=== PATIENT | female | born 1965 | race Caucasian/White ===

== ENCOUNTER → 2018-06-28 | Day surgery (SDC) | payer OTHER ==
[2018-06-23 12:19] LABS: BASOPHILS # (AUTO) 0.1 (0.0-0.1); BASOPHILS % 0.9 % (0.0-1.0); EOSINOPHILS # (AUTO) 0.3 (0.0-0.4); EOSINOPHILS % 3.1 % (0.0-6.0); HEMATOCRIT 36.4 % (34.2-44.1); HEMOGLOBIN 11.5 g/dL (12.0-16.0); LYMPHOCYTES % 33.3 % (18.0-39.1); MEAN CORPUSCULAR HEMOGLOBIN 27.4 pg (28-32); MEAN CORPUSCULAR HGB CONC 31.6 g/dL (31-35); MEAN CORPUSCULAR VOLUME 86.7 fL (81-99); MONOCYTES # (AUTO) 0.5 (0.2-0.8); NEUTROPHILS # (AUTO) 5.2 (2.1-6.9); NEUTROPHILS % 57.5 % (38.7-80.0); PLATELET COUNT 298 x10e3/uL (140-360); RED CELL DISTRIBUTION WIDTH 13.2 % (11.7-14.4)
[~2018-06-28] MED LIST: ATORVASTATIN CA20 MG PO; FENTANYL CITRATE/PF 100MCG/2 ML INJ ONE; HYOSCYAMINE SULFATE 0.5 MG/ML INJ ONE; LISINOPRIL10 MG PO; LORAZEPAM1 MG PO; METFORMIN HCL500 MG PO; MIDAZOLAM HCL 2 MG/2 ML VIAL ONE; NORCO 7.5-3251 EACH PO; NOVOLOG MIX 70-33 M1 SQ; OMEPRAZOLE40 MG PO; PROPOFOL IV EMULSION 10 MG/ML 50 ML VIAL ONE; Z.0.CELEBREX50 MG PO; Z.0.GLIPIZIDE10 MG; Z.0.GLUCOPHAGE850 MG; Z.0.PRILOSEC OTC20 M; Z.0.PRINIVIL20 MG; [UNRECOGNIZED DRUG - OTHER]
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
[2018-06-28 10:15] VITALS: BP 111/77
[2018-06-28 11:16] LABS: WBC,FECAL (FECAL LACTOFERRIN) NEGATIVE (NEGATIVE)
[2018-06-28 11:40] LABS: C DIFFICILE TOXIN A&B AMP PROB NEGATIVE (NEGATIVE)
--- NOTE | 2018-06-28 12:20 | Operative Report ---
DATE OF PROCEDURE: June 28, 2018 REFERRING PHYSICIAN: Dr. Kevin Weller. PROCEDURES PERFORMED 1. Esophagogastroduodenoscopy with biopsies and esophageal dilation 2. Colonoscopy with biopsies. INDICATIONS FOR ESOPHAGOGASTRODUODENOSCOPY: Dysphagia, upper abdominal pain, history of melena. INDICATIONS FOR COLONOSCOPY: Chronic diarrhea, personal history of colon polyps. MEDICATION: Patient was done under MAC. Please see anesthesiologist's note. PROCEDURE: With the patient in left lateral decubitus position, flexible fiberoptic Olympus gastroscope was introduced into the esophagus under direct visualization without any difficulty. There was some patchy erythema noted in distal esophagus. Mild stricture was noted at the GE junction that dilated to a size 52-Tristanian Rios. The scope was then advanced with ease into the stomach. Mucosa overlying the antrum and the body revealed some patchy intense erythema and low-grade to moderate edema and biopsies were obtained and sent to stain for H. pylori. Gastric polyps, hyperplastic appearing, minute were noted in the body of the stomach and some were partially excised per the cold biopsy forceps. Pylorus appeared to be of normal contour and shape and intubated with ease and the scope was advanced all the way to the 2nd portion of the duodenum. Biopsies were obtained from the proximal 2nd portion and the duodenal bulb to rule out sprue. The scope was then withdrawn back into the stomach and retroflexed, and mucosa overlying the fundus and the cardia appeared to be within normal limits. The scope was then straightened out and was subsequently withdrawn. Patient tolerated the procedure well. IMPRESSION 1. Distal esophagitis, mild. 2. Esophageal stricture at gastroesophageal junction, dilated to a size 52-Tristanian Rios. 3. Gastritis, biopsied. Biopsy sent to stain for Helicobacter pylori. 4. Gastric polyps, hyperplastic appearing, some partially excised with cold biopsy forceps. 5. Rule out sprue. PLAN: Follow up histology. Continue omeprazole 40 mg 1 p.o. a. c. b.i.d. and Carafate 1 gram p.o. a.c. t.i.d. and nightly. Patient was then turned around and after adequate lubrication of the anal canal, a flexible fiberoptic Olympus colonoscope was inserted into the rectum with ease and advanced all the way to the cecum. Mucosa overlying the cecum revealed some patchy mild inflammatory changes. The ileocecal valve was intubated and the scope was advanced into the terminal ileum. Biopsies were obtained from the terminal ileum. The scope was then withdrawn slowly. Mucosa overlying the ascending, transverse, descending, sigmoid, and rectum revealed some patchy [id number] inflammatory changes and random biopsies were obtained. There was some scattered diverticular disease noted, which was more prominent in the sigmoid colon. The scope was then retroflexed into the distal rectum and small internal hemorrhoids were noted, none of which was actively bleeding. The scope was then straightened out. The scope was subsequently withdrawn after securing an adequate stool specimen that was sent for the appropriate stool studies. Patient tolerated the procedure well. IMPRESSION 1. Colitis, mild, patchy. Random biopsies obtained. 2. Diverticulosis. 3. Proctitis, mild. 4. Internal hemorrhoids, none actively bleeding. PLAN: Follow up histology. Follow up stool studies. Initiate VSL #3 one p.o. daily and Bentyl 10 mg 1 p.o. t.i.d. Start Flagyl 500 mg 1 p.o. q. i.d. x14 days. Patient might benefit from a followup colonoscopy in 5 to 10 years. Job#: [id number] UMA cc:DR. KEVIN WELLER
== END | disposition home or self-care (01) ==
LOC: OR 07:23
PROVIDERS: ATTEND Internal Medicine Gastroenterology
DX: K29.70 Gastritis, unspecified, without bleeding (principal); K31.7 Polyp of stomach and duodenum; K22.2 Esophageal obstruction; K20.9 Esophagitis, unspecified; K52.9 Noninfective gastroenteritis and colitis, unspecified; K21.9 Gastro-esophageal reflux disease without esophagitis; K57.30 Diverticulosis of large intestine without perforation or abscess without bleeding; K62.89 Other specified diseases of anus and rectum; K64.8 Other hemorrhoids; I10 Essential (primary) hypertension; E11.9 Type 2 diabetes mellitus without complications; M19.90 Unspecified osteoarthritis, unspecified site; R53.1 Weakness; F41.9 Anxiety disorder, unspecified; E78.5 Hyperlipidemia, unspecified; Z88.6 Allergy status to analgesic agent; Z01.810 Encounter for preprocedural cardiovascular examination; Z01.812 Encounter for preprocedural laboratory examination; Z79.4 Long term (current) use of insulin; Z87.891 Personal history of nicotine dependence; Z80.0 Family history of malignant neoplasm of digestive organs
CPT/HCPCS: 36415 ×2; 43239; 43450; 45380; 82948; 83630; 83993; 85025; 87045; 87177; 87328; 87493; 93005; J1980; J2250; 45378

== ENCOUNTER 2020-06-21 05:29 | Observation (INO) | payer BC ==
[2020-06-18 15:42] LABS: BASOPHILS # (AUTO) 0.1 (0.0-0.1); BASOPHILS % 1.3 % (0.0-1.0); EOSINOPHILS # (AUTO) 0.6 (0.0-0.4); EOSINOPHILS % 6.9 % (0.0-6.0); HEMATOCRIT 37.8 % (34.2-44.1); HEMOGLOBIN 11.6 g/dL (12.0-16.0); LYMPHOCYTES # (AUTO) 2.9 (1.0-3.2); LYMPHOCYTES % 33.6 % (18.0-39.1); MEAN CORPUSCULAR HEMOGLOBIN 26.5 pg (28-32); MEAN CORPUSCULAR HGB CONC 30.7 g/dL (31-35); MEAN CORPUSCULAR VOLUME 86.3 fL (81-99); MONOCYTES # (AUTO) 0.4 (0.2-0.8); MONOCYTES % 4.9 % (4.4-11.3); NEUTROPHILS # (AUTO) 4.5 (2.1-6.9); NEUTROPHILS % 52.8 % (38.7-80.0); PLATELET COUNT 259 x10e3/uL (140-360); RED BLOOD COUNT 4.38 x10e6/uL (3.6-5.1); RED CELL DISTRIBUTION WIDTH 13.9 % (11.7-14.4)
[2020-06-18 15:54] LABS: INR 0.9; PARTIAL THROMBOPLASTIN TIME 25.3 seconds (23.8-35.5); PROTHROMBIN TIME 12.6 seconds (11.9-14.5)
[2020-06-18 16:00] LABS: ANION GAP 14.9 mmol/L (8-16); BLOOD UREA NITROGEN 14 mg/dL (7-26); BUN/CREATININE RATIO 15 (6-25); CALCIUM 8.9 mg/dL (8.4-10.2); CARBON DIOXIDE 27 mmol/L (22-29); CHLORIDE 104 mmol/L (98-107); CREATININE, SERUM 0.95 mg/dL (0.57-1.11); EST GLOMERULAR FILTRATION RATE > 60 ML/MIN (60-); GLUCOSE 129 mg/dL (74-118); POTASSIUM 4.9 mmol/L (3.5-5.1); SODIUM 141 mmol/L (136-145)
--- NOTE | 2020-06-18 16:30 | Diagnostic Imaging Report ---
Exam: CHEST 2 VIEWS Date: 06/18/2020 4:24 PM INDICATION: ^PRE-OP Comparison: None FINDINGS: Lines/Tubes:None Lungs:The lungs are well inflated. No focal consolidation or pulmonary edema. Pleura:No pleural effusion. No pneumothorax. Heart/Mediastinum:The cardiomediastinal silhouette is normal in size and contour. Bones/Soft Tissues: No acute osseous abnormality. Mild multilevel degenerative changes of the spine are noted. Upper abdomen: Unremarkable. IMPRESSION: Negative for acute intrathoracic process. Signed by: Alvin Morrow MD on 06/18/2020 4:27 PM
[2020-06-21] VITALS (7 sets, daily range): BP systolic 140–152; BP diastolic 73–90
[~2020-06-21] VITALS: Ht 170.2 cm; Wt 88.5 kg
[~2020-06-21 05:29] MED LIST changes: -FENTANYL CITRATE/PF 100MCG/2 ML INJ ONE; +GABAPENTIN300 MG PO; -HYOSCYAMINE SULFATE 0.5 MG/ML INJ ONE; +METOPROLOL TART25 MG PO; -MIDAZOLAM HCL 2 MG/2 ML VIAL ONE; +NOVOLOG100 UNIT/1 SC; -PROPOFOL IV EMULSION 10 MG/ML 50 ML VIAL ONE; +TIZANIDINE HCL4 M1 PO
[2020-06-21] MEDS ORDERED: CEFAZOLIN SOD 1 GM/NS 50ML 100 ML IV ONE (06:02)
[2020-06-21] MEDS ORDERED: LIDOCAINE 1% W/EPINEPHRINE 20 ML VIAL ONE (06:53)
[2020-06-21] MEDS ORDERED: THROMBIN FOR SOLN 5,000 UNIT VIAL ONE (06:53)
[2020-06-21] MEDS ORDERED: VANCOMYCIN HCL 1 GM VIAL ONE (06:53)
[2020-06-21] MEDS ORDERED: LIDOCAINE HCL (LTA) 4 ML SOLN ONE (07:07)
[2020-06-21] MEDS ORDERED: ACETAMINOPHEN 1000 MG/100 ML 100 ML IV ONE (07:07)
[2020-06-21] MEDS ORDERED: IBUPROFEN 800MG/ 200ML 200 ML IV ONE (07:07)
[2020-06-21] MEDS ORDERED: ACETAMINOPHEN 325 MG TAB PO PRN (08:45)
[2020-06-21] MEDS ORDERED: CARISOPRODOL 350 MG TAB PO PRN (08:45)
[2020-06-21] MEDS ORDERED: INSULIN LISPRO 100 UNIT/1 ML 3ML VIAL SQ SCH (08:45)
[2020-06-21] MEDS ORDERED: MORPHINE SULFATE 5 MG/ML VIAL IM PRN (08:45)
[2020-06-21] MEDS ORDERED: MAGNESIUM/ALUMINUM/SIMETHICONE 30 ML UDC PO PRN (08:45)
[2020-06-21] MEDS ORDERED: PROMETHAZINE HCL (IM) 25 MG/ML VIAL IM PRN (08:45)
[2020-06-21] MEDS ORDERED: ONDANSETRON HCL INJ 2MG/ML 2ML 2 MG/ML VIAL ONE ×2 (08:59→13:24)
--- OUTSIDE RECORDS SUMMARY | 2020-06-21 08:59 | XMS REPORT | Continuity of Care Document ---
Author Author Rajiv [employer] DMITRIY Christian [employer] Information [email or web address] Address Unknown Phone Unavailable Care Team Providers Care Sales Promotion Coordinator Name Role Phone [facility] [employer] Unavailable Un available Problems Problem Status Onset Date Classification Date Reported Comments Source Presence of right artificial knee joint 06/30/2018 01/11/2019 [facility] [place] Aftercare following joint replacement surgery 05/28/2018 12/09/2018 [facility] [place] RIGHT KNEE SURGERY [id number] Acti ve 04/20/2018 [facility] [place] RIGHT TOTAL KNEE Active 04/20/2018 [facility] UNK Active 0 03/23/2018 [facility] M17.11 M25.561 Active 03/23/2018 [facility] DX: S43.421A=SPRAIN OF RIGHT ROTATOR CUF Active 05/08/2017 [facility] Pain in right knee 01/11/2019 [facility] Stiffness of right knee, not elsewhere classified 01/11/2019 [facility] [place] Muscle weakness (generalized) 01/11/2019 [facility] [place] Difficulty in walking, not elsewhere classified 01/11/2019 [facility] [place] Anxiety (finding) Active Problem 01/11/2019 [facility] Diabetes mellitus (disorder) A ctive Problem 06/2019 [facility] [place] Heartburn (finding) Active Problem 01/11/2019 [facility] [place] Arthritis (disorder) Active Problem 01/11/2019 [facility] Unilateral primary osteoarthritis, right knee 11/09/2018 [facility] Type 2 diabetes mellitus without complications 11/09/2018 [facility] intermediate frame tender (current) use of insulin 11/09/2018 [facility] Pure hypercholesterolemia, unspecified 11/09/2018 [facility] Gastro-esophageal reflux disease without esophagitis 11/09/2018 [facility] Anxiety disorder, unspecified 11/09/2018 [facility] Anemia, unspecified 11/09/2018 [facility] UNILATERAL PRIMARY OSTEOARTHRITIS, RIGHT Active [facility] PAIN IN RIGHT KNEE Active [facility] ENCNTR FOR GENERAL ADULT MEDICAL EXAM W/ Active [facility] PAIN IN RIGHT HIP Active [facility] PAIN IN LEFT HIP Active [facility] Medications Medication Details Route Status Patient Instructions Ordering Provider Order Date Source Acetaminophen 325 MG / Hydrocodone Benny trate 10 MG Oral Tablet [[place] 10/325] 1-2 tab, PO, Q6H, PRN Pain, X 14 day, # 60 tab, 0 Refill(s), given to patient No Longer Active 04/22/2018 [facility] Metformin Notes: (Same as: Glu cophage) Take with meal No Longer Active 04/21/2018 [facility] Enoxaparin Notes: (Same as: Lo venox) No Longer Active 04/21/2018 [facility] Lunesta 3 mg, Route: PO, Bedti me, Dosing Weight 83.21, kg, Start date: 04/20/18 21:00:00 CDT, Duration: 30 day, Stop date: 05/19/18 21:00:00 CDT Inactive 04/21/2018 [facility] zolpidem Notes: (Same As: Ambi en) No Longer Active 04/21/2018 [facility] Insulin Lispro Notes: (Same as : Humalog ) Roll in palms of hands gently; Do not shake `vigorously. "Single Patient Use Only " WASTE: F/P - Black; E - Municipal Trash Bin Stable for 28 days at room temp erature. Expires in days from Date No Longer Active 04/20/2018 [facility] Dextrose 50% Syringe 25 gm, 50 mL, Route: IVP, Drug Form: INJ, Dosing Weight 83.21, kg, PRN, PRN Blood Glucose Results, Start date: 04/20/18 16:12:00 CDT, Duration: 30 day, Stop date: 05/20/18 16:11:00 CDT No Longer Active 04/20/2018 [facility] Glucagon 1 mg, Route: IM, Drug form: PDR/INJ, PRN, Dosing Weight 83.21, kg, PRN Blood Glucose Results, Start date: 04/20/18 16:12:00 CDT, Duration: 30 day, Stop date: 05/20/18 16:11:00 CDT No Longer Active 04/20/2018 [facility] Cefazolin Notes: (Same As: Anc ef, Kefzol) MEDICATION WASTE Product Size: 1000 mg Product Wasted: ___ mg No Longer Active 04/20/2018 [facility] Zofran Notes: (Same as: Zofran ) MEDICATION WASTE Product Size: 4 mg Product Wasted: ___ mg No Longer Active 04/20/2018 [facility] Lovenox 30 mg, Route: SUB-Q, D rug form: INJ, [id number], Dosing Weight 83.21, kg, Start date: 04/20/18 12:00:00 CDT, Duration: 30 day, Stop date: 05/20/18 0:00:00 CDT Inactive 04/20/2018 [facility] Dilaudid Notes: Same as: Dilau did No Longer Active 04/20/2018 [facility] Acetaminophen 325 MG / Hydrocodone Benny trate 10 MG Oral Tablet [[place] 10/325] Notes: Do not exceed 4gm/day of acetamin ophen. (Same as: [place] 325/10) No Longer Active 04/20/2018 [facility] Valium Notes: (Same as: Valium) No Longer Active 04/20/2018 [facility] Acetaminophen 325 MG / Hydrocodone Benny trate 7.5 MG Oral Tablet [[place] 7.5/325] 1 tab, Route: PO, Drug Form: TAB, Dosing Weight 83.21, kg, Q4H, PRN Pain Score 4-6, Start date: 04/20/18 11:44:00 CDT, Duration: 30 day, Stop date: 05/20/18 11:43:00 CDT Inactive 04/20/2018 [facility] Tylenol Notes: Do not exceed 4 gm/day. (Same as: Tylenol) No Longer Active 04/20/2018 [facility] Lactated Ringers IV 1,000 mL 1 ,000 mL, Rate: 75 ml/hr, Infuse over: 13.3 hr, Route: IV, Dosing Weight 83.21 kg, Total Volume: 1,000, Start date: 04/20/18 11:44:00 CDT, Duration: 30 day, Stop date: 05/20/18 11:43:00 CDT, 2, m2 No Longer Active 04/20/2018 [facility] neostigmine (ANES) Route: IV, Drug form: INJ, ONCE, Stop date: 04/20/18 11:43:00 CDT Inactive 04/20/2018 [facility] glycopyrrolate (ANES) Route: I V, Drug form: INJ, ONCE, Stop date: 04/20/18 11:43:00 CDT Inactive 04/20/2018 [facility] ondansetron (ANES) Route: IV, Drug form: INJ, ONCE, Stop date: 04/20/18 11:32:00 CDT Inactive 04/20/2018 [facility] tranexamic acid (ANES) Route: IV, Drug form: INJ, ONCE, Stop date: 04/20/18 11:32:00 CDT Inactive 04/20/2018 [facility] ceFAZolin (ANES) Route: IV, Dr ug form: INJ, ONCE, Stop date: 04/20/18 11:07:00 CDT Inactive 04/20/2018 [facility] rocuronium (ANES) Route: IV, D rug form: INJ, ONCE, Stop date: 04/20/18 11:07:00 CDT Inactive 04/20/2018 [facility] lidocaine (ANES) Route: IV, Dr ug form: INJ, ONCE, Stop date: 04/20/18 11:07:00 CDT Inactive 04/20/2018 [facility] fentaNYL (ANES) Route: IV, Juan g form: INJ, ONCE, Stop date: 04/20/18 11:07:00 CDT Inactive 04/20/2018 [facility] propofol (ANES) Route: IV, Juan g form: INJ, ONCE, Stop date: 04/20/18 11:07:00 CDT Inactive 04/20/2018 [facility] midazolam (ANES) Route: IV, Dr ug form: SOLN, ONCE, Stop date: 04/20/18 11:02:00 CDT Inactive 04/20/2018 [facility] Lactated Ringers Injection IV (ANES) 1000 mL Route: IV, Total Volume: 1,000, Start date: 04/20/18 10:17:00 CDT, Stop date: 04/20/18 11:17:00 CDT Inactive 04/20/2018 [facility] Hydralazine 10 mg, Route: IVP, Q20Min, Dosing Weight 83.21, kg, PRN Elevated BP, Start date: 04/20/18 9:52:00 CDT, Duration: 2 doses or times, Stop date: Limited # of times Inactive 04/20/2018 [facility] esmolol 10 mg, Route: IVP, Q5M in, Dosing Weight 83.21, kg, PRN Other -See Comment, Start date: 04/20/18 9:52:00 CDT, Duration: 5 doses or times, Stop date: Limited # of times Inactive 04/20/2018 [facility] Labetalol 10 mg, Route: IVP, Q 5Min, Dosing Weight 83.21, kg, PRN Elevated BP, Start date: 04/20/18 9:52:00 CDT, Duration: 5 doses or times, Stop date: Limited # of times Inactive 04/20/2018 [facility] Ondansetron 4 mg, Route: IVP, ONCE, Dosing Weight 83.21, kg, PRN Nausea & Vomiting, Start date: 04/20/18 9:52:00 CDT Inactive 04/20/2018 [facility] Meperidine 12.5 mg, Route: IVP , Q30Min, Dosing Weight 83.21, kg, PRN Other -See Comment, For shivering, Start date: 04/20/18 9:52:00 CDT, Duration: 2 doses or times, Stop date: Limited # of times Inactive 04/20/2018 [facility] Albuterol 0.83 MG/ML Inhalant Solution 2.49 mg, Route: NEB, Q20Min, Dosing Weight 83.21, kg, PRN Wheezing, Priority: STAT, Start date: 04/20/18 9:52:00 CDT, Duration: 30 day, Stop date: 05/20/18 9:51:00 CDT Inactive 04/20/2018 [facility] Diphenhydramine 12.5 mg, Route : IVP, Drug form: INJ, Q6H, Dosing Weight 83.21, kg, PRN Itching, Start date: 04/20/18 9:52:00 CDT, Duration: 30 day, Stop date: 05/20/18 9:51:00 CDT Inactive 04/20/2018 [facility] Naloxone 0.4 mg, Route: IVP, Q 2MIN, Dosing Weight 83.21, kg, PRN Narcotic Reversal, Start date: 04/20/18 9:52:00 CDT, Duration: 8 doses or times, Stop date: Limited # of times Inactive 04/20/2018 [facility] Flumazenil 0.2 mg, Route: IVP, PRN, Dosing Weight 83.21, kg, PRN Benzodiazepine Reversal, Initial dose, Start date: 04/20/18 9:52:00 CDT, Duration: 30 day, Stop date: 05/20/18 9:51:00 CDT Inactive 04/20/2018 [facility] Fentanyl 25 microgram, Route: IVP, Q5Min, Dosing Weight 83.21, kg, PRN Pain Score 4-6, Priority: Routine, Start date: 04/20/18 9:52:00 CDT, Duration: 4 doses or times, Stop date: Limited # of times Inactive 04/20/2018 [facility] Oxycodone 10 mg, Route: PO, Dr ug form: TAB, Q4H, Dosing Weight 83.21, kg, PRN Pain Score 7-10, Start date: 04/20/18 9:52:00 CDT, Duration: 30 day, Stop date: 05/20/18 9:51:00 CDT Inactive 04/20/2018 [facility] Acetaminophen 1,000 mg, Route: PO, Drug form: TAB, ONCE, Dosing Weight 83.21, kg, PRN Pain Score 1-3, Start date: 04/20/18 9:52:00 CDT Inactive 04/20/2018 [facility] LR IV 1000 mL 1,000 mL, Rate: 25 ml/hr, Infuse over: 40 hr, Route: IV, Dosing Weight 83.21 kg, Total Volume: 1,000, Start date: 04/20/18 8:53:00 CDT, Duration: 30 day, Stop date: 05/20/18 8:52:00 CDT, 2, m2 Inactive 04/20/2018 [facility] celecoxib 90 mL/min), Start d ate: 04/20/18 8:00:00 CDT, Duration: 30 day, Stop date: 05/20/18 7:59:00 CDT Inactive 04/20/2018 [facility] ropivacaine 100 mL, Route: InF ILtration(local), Drug Form: INJ, Dosing Weight 83.21, kg, ONCALL, Start date: 04/20/18 8:00:00 CDT, Duration: 30 day, Stop date: 05/20/18 7:59:00 CDT Inactive 04/20/2018 [facility] gabapentin 300 mg, Route: PO, ONCALL, Dosing Weight 83.21, kg, Start date: 04/20/18 8:00:00 CDT, Duration: 30 day, Stop date: 05/20/18 7:59:00 CDT Inactive 04/20/2018 [facility] ropivacaine Notes: NOT FOR IV use Ropivacaine 5 mg/mL (49.25 mL) Epinephrine 1 mg/mL (0.5 mL) Clonidine 0.1 mg/mL (0.8 mL) Ketorolac 30 mg/mL (1 mL) Normal Saline 48.45 mL No Longer Active 04/20/2018 [facility] Diazepam 5 MG Oral Tablet [Valium] 5 mg = 1 tab, PO, QID, PRN Spasm, # 30 tab, 0 Refill(s) No Longer Active 04/19/2018 [facility] Eszopiclone 3 MG Oral Tablet [Lunesta] 3 mg = 1 tab, PO, Bedtime, PRN for insomnia, # 30 tab, 0 Refill(s) No Longer Active 04/19/2018 [facility] Cephalexin 500 MG Oral Capsule [Keflex] 500 mg = 1 cap, PO, QID, X 10 day, # 40 cap, 0 Refill(s) No Longer Active 04/19/2018 [facility] 0.3 ML Enoxaparin sodium 100 MG/ML Prefi lled Syringe [Lovenox] 30 mg, SUB-Q, Q12H, X 14 day, # 28 inj, 0 Refill(s) No Longer Active 04/19/2018 [facility] Humalog Mix 75/25 10 unit, SUB -Q, Daily, 0 Refill(s) Active 04/15/2018 [facility] Lorazepam 1 MG Oral Tablet 1 m g = 1 tab, PO, Bedtime, 0 Refill(s) Active 04/15/2018 [facility] atorvastatin 20 mg oral tablet 20 mg = 1 tab, PO, Daily, 0 Refill(s) Active 04/15/2018 [facility] Ketorolac 15 mg, Route: IVP, Q 6H, Dosing Weight 88.182, kg, Start date: 12/04/16 12:00:00 CDT, Duration: 6 doses or times, Stop date: 12/05/16 18:00:00 CDT Inactive 12/04/2016 [facility] Oxycodone Hydrochloride 5 MG Oral Tablet 10 mg, Route: PO, Drug form: TAB, ONCE, Dosing Weight 88.182, kg, PRN Pain Score 7-10, Start date: 12/04/16 9:31:00 CDT Inactive 12/04/2016 [facility] ondansetron (ANES) Route: IV, Drug form: INJ, ONCE, Stop date: 12/04/16 8:36:00 CDT Inactive 12/04/2016 [facility] ceFAZolin (ANES) Route: IV, Dr ug form: INJ, ONCE, Stop date: 12/04/16 8:36:00 CDT Inactive 12/04/2016 [facility] lidocaine (ANES) Route: IV, Dr ug form: INJ, ONCE, Stop date: 12/04/16 8:36:00 CDT Inactive 12/04/2016 [facility] midazolam (ANES) Route: IV, Dr ug form: SOLN, ONCE, Stop date: 12/04/16 8:36:00 CDT Inactive 12/04/2016 [facility] propofol (ANES) Route: IV, Juan g form: INJ, ONCE, Stop date: 12/04/16 8:36:00 CDT Inactive 12/04/2016 [facility] fentaNYL (ANES) Route: IV, Juan g form: INJ, ONCE, Stop date: 12/04/16 8:36:00 CDT Inactive 12/04/2016 [facility] Phenergan 12.5 mg, Route: IVPB , Q4H, Dosing Weight 88.182, kg, PRN Nausea & Vomiting, Start date: 12/04/16 8:30:00 CDT, Duration: 30 day, Stop date: 01/03/17 8:29:00 CDT Inactive 12/04/2016 [facility] Zofran 4 mg, Route: IV, Drug f orm: INJ, Q4H, Dosing Weight 88.182, kg, PRN Nausea, Start date: 12/04/16 8:30:00 CDT, Duration: 30 day, Stop date: 01/03/17 8:29:00 CDT Inactive 12/04/2016 [facility] Tramadol 50 mg, Route: PO, Juan g form: TAB, Q6H, Dosing Weight 88.182, kg, PRN Pain Score 1-3, Start date: 12/04/16 8:30:00 CDT, Duration: 30 day, Stop date: 01/03/17 8:29:00 CDT Inactive 12/04/2016 [facility] Hydromorphone 0.3 mg, Route: I AUDITOR INTERNAL, Q3H, Dosing Weight 88.182, kg, PRN Pain Score 4-6, Start date: 12/04/16 8:30:00 CDT, Duration: 30 day, Stop date: 01/03/17 8:29:00 CDT Inactive 12/04/2016 [facility] Morphine 2 mg, Route: IVP, Q3H , Dosing Weight 88.182, kg, PRN Pain Score 1-3, Start date: 12/04/16 8:30:00 CDT, Duration: 30 day, Stop date: 01/03/17 8:29:00 CDT Inactive 12/04/2016 [facility] Acetaminophen 325 MG / Hydrocodone Benny trate 5 MG Oral Tablet Route: PO, Dosing Weight 88.182, kg, Q4H , PRN Pain Score 4-6, Start date: 12/04/16 8:30:00 CDT, Duration: 30 day, Stop date: 01/03/17 8:29:00 CDT Inactive 12/04/2016 [facility] Albuterol 0.833 MG/ML / Ipratropium Brom yamileth 0.167 MG/ML Inhalant Solution 3 mL, Route: NEB, Dosing Weight 88.182, kg, ONCE, STAT, Start date: 12/04/16 8:13:00 CDT, Stop date: 12/04/16 8:13:00 CDT Inactive 12/04/2016 [facility] Calcium Chloride 0.0014 MEQ/ML / Potassi um Chloride 0.004 MEQ/ML / Sodium Chloride 0.103 MEQ/ML / Sodium Lactate 0.028 MEQ/ML Injectable Solution 1,000 mL, Rate: 25 ml/hr, Infuse over: 4 0 hr, Route: IV, Dosing Weight 88.182 kg, Total Volume: 1,000, Start date: 12/04/16 8:13:00 CDT, Duration: 30 day, Stop date: 01/03/17 8:12:00 CDT Inactive 12/04/2016 [facility] Ondansetron 4 mg, Route: IVP, ONCE, Dosing Weight 88.182, kg, PRN Nausea & Vomiting, Start date: 12/04/16 7:54:00 CDT Inactive 12/04/2016 [facility] Meperidine 12.5 mg, Route: IVP , Q30Min, Dosing Weight 88.182, kg, PRN Other -See Comment, For shivering, Start date: 12/04/16 7:54:00 CDT, Duration: 2 doses or times, Stop date: Limited # of times Inactive 12/04/2016 [facility] Promethazine 6.25 mg, Route: I VPB, ONCE, Dosing Weight 88.182, kg, PRN Nausea & Vomiting, Start date: 12/04/16 7:54:00 CDT Inactive 12/04/2016 [facility] Calcium Chloride 0.0014 MEQ/ML / Potassi um Chloride 0.004 MEQ/ML / Sodium Chloride 0.103 MEQ/ML / Sodium Lactate 0.028 MEQ/ML Injectable Solution 1,000 mL, Rate: 125 ml/hr, Infuse over: 8 hr, Route: IV, Dosing Weight 88.182 kg, Total Volume: 1,000, Start date: 12/04/16 7:54:00 CDT, Duration: 30 day, Stop date: 01/03/17 7:53:00 CDT Inactive 12/04/2016 [facility] Acetaminophen 1,000 mg, Route: PO, Drug form: TAB, ONCE, Dosing Weight 88.182, kg, PRN Pain Score 1-3, Start date: 12/04/16 7:54:00 CDT, Duration: 1 doses or times, Stop date: Limited # of times Inactive 12/04/2016 [facility] Oxycodone 5 mg, Route: PO, Juan g form: TAB, Q4H, Dosing Weight 88.182, kg, PRN Pain Score 4-6, Start date: 12/04/16 7:54:00 CDT, Duration: 30 day, Stop date: 01/03/17 7:53:00 CDT Inactive 12/04/2016 [facility] esmolol 10 mg, Route: IVP, Q5M in, Dosing Weight 88.182, kg, PRN Other -See Comment, Start date: 12/04/16 7:54:00 CDT, Duration: 5 doses or times, Stop date: Limited # of times Inactive 12/04/2016 [facility] Hydralazine 10 mg, Route: IVP, Q20Min, Dosing Weight 88.182, kg, PRN Elevated BP, Start date: 12/04/16 7:54:00 CDT, Duration: 2 doses or times, Stop date: Limited # of times Inactive 12/04/2016 [facility] Labetalol 10 mg, Route: IVP, Q 5Min, Dosing Weight 88.182, kg, PRN Elevated BP, Start date: 12/04/16 7:54:00 CDT, Duration: 5 doses or times, Stop date: Limited # of times Inactive 12/04/2016 [facility] Hydromorphone 0.5 mg, Route: I AUDITOR INTERNAL, Q5Min, Dosing Weight 88.182, kg, PRN Pain Score 7-10, Start date: 12/04/16 7:54:00 CDT, Duration: 4 doses or times, Stop date: Limited # of times Inactive 12/04/2016 [facility] Diphenhydramine 12.5 mg, Route : IVP, Drug form: INJ, Q6H, Dosing Weight 88.182, kg, PRN Itching, Start date: 12/04/16 7:54:00 CDT, Duration: 30 day, Stop date: 01/03/17 7:53:00 CDT Inactive 12/04/2016 [facility] Flumazenil 0.2 mg, Route: IVP, PRN, Dosing Weight 88.182, kg, PRN Benzodiazepine Reversal, Initial dose, Start date: 12/04/16 7:54:00 CDT, Duration: 30 day, Stop date: 01/03/17 7:53:00 CDT Inactive 12/04/2016 [facility] Albuterol 0.83 MG/ML Inhalant Solution 2.49 mg, Route: NEB, Q20Min, Dosing Weight 88.182, kg, PRN Wheezing, Priority: STAT, Start date: 12/04/16 7:54:00 CDT, Duration: 30 day, Stop date: 01/03/17 7:53:00 CDT Inactive 12/04/2016 [facility] Naloxone 0.4 mg, Route: IVP, Q 2MIN, Dosing Weight 88.182, kg, PRN Narcotic Reversal, Start date: 12/04/16 7:54:00 CDT, Duration: 8 doses or times, Stop date: Limited # of times Inactive 12/04/2016 [facility] LR 1000 mL INJ (ANES) Route: I V, Total Volume: 1,000, Start date: 12/04/16 7:50:00 CDT, Stop date: 12/04/16 8:50:00 CDT Inactive 12/04/2016 [facility] Cephalexin 500 MG Oral Capsule [Keflex] 500 mg = 1 cap, PO, QID, X 10 day, # 40 cap, 0 Refill(s) Active 12/04/2016 [facility] Omeprazole PO, Daily, 0 Refill (s) Active 11/27/2016 [facility] Vitamin B12 0 Refill(s) Active 11/27/2016 [facility] Vitamin C Daily, 0 Refill(s) Active 11/27/2016 [facility] multivitamin Daily, 0 Refill(s) Active 11/27/2016 [facility] lisinopril 10 mg oral tablet 1 0 mg = 1 tab, PO, Daily, 0 Refill(s) Active 11/27/2016 [facility] Simvastatin 40 MG Oral Tablet [Zocor] 40 mg = 1 tab, PO, Bedtime, 0 Refill(s) Active 11/27/2016 [facility] Metformin hydrochloride 1000 MG Oral Tablet 1,000 mg = 1 tab, PO, BID, 0 Refill(s) Active 11/27/2016 [facility] Allergies, Adverse Reactions, Alerts Substance Category Reaction Severity Reaction type Status Date Reported Comments Source morphine Assertion Drug allergy Active [facility] Immunizations Immunization Date Given Site Status Last Updated Comments Source pneumococcal 23-valent vaccine 04/22/2018 Left deltoid completed [facility]han[facility] Murillo [facility] Results Order Name Results Value Reference Range Date Interpretation Comments Source HEMATOLOGY Neutrophils # 6.1 1.5 - 8.1 04/22/2018 [facility] HEMATOLOGY Lymphocytes # 1.6 1.0 - 5.5 04/22/2018 [facility] HEMATOLOGY Monocytes 9.0 2.0 - 12.0 04/22/2018 [facility] HEMATOLOGY Monocytes # 0.8 0.0 - 0.8 04/22/2018 [facility] HEMATOLOGY Eosinophils # 0.1 0.0 - 0.5 04/22/2018 [facility] HEMATOLOGY Basophils 0.3 0.0 - 1.0 04/22/2018 [facility] HEMATOLOGY Eosinophils 0.7 0.0 - 4.0 04/22/2018 [facility] HEMATOLOGY Lymphocytes 18.3 20.0 - 40.0 04/22/2018 [facility] HEMATOLOGY Segs 71.7 45.0 - 75.0 04/22/2018 [facility] HEMATOLOGY MPV 8.4 7.4 - 10.4 04/22/2018 [facility] HEMATOLOGY MCH 28.6 27.0 - 31.0 04/22/2018 [facility] HEMATOLOGY MCHC 33.2 32.0 - 36.0 04/22/2018 [facility] HEMATOLOGY Platelet 197 133 - 450 04/22/2018 [facility] HEMATOLOGY RDW 14.0 11.5 - 14.5 04/22/2018 [facility] HEMATOLOGY Hgb 9.1 12.0 - 16.0 04/22/2018 [facility] HEMATOLOGY MCV 86.0 80.0 - 98.0 04/22/2018 [facility] HEMATOLOGY Hct 27.5 36.0 - 48.0 04/22/2018 [facility] HEMATOLOGY WBC 8.5 3.7 - 10.4 04/22/2018 [facility] HEMATOLOGY RBC 3.19 4.20 - 5.40 04/22/2018 [facility] HEMATOLOGY WBC 7.6 3.7 - 10.4 04/21/2018 [facility] HEMATOLOGY RBC 3.23 4.20 - 5.40 04/21/2018 [facility] HEMATOLOGY Hgb 9.3 12.0 - 16.0 04/21/2018 [facility] HEMATOLOGY Hct 27.9 36.0 - 48.0 04/21/2018 [facility] HEMATOLOGY MCV 86.3 80.0 - 98.0 04/21/2018 [facility] HEMATOLOGY Platelet 190 133 - 450 04/21/2018 [facility] HEMATOLOGY MPV 9.0 7.4 - 10.4 04/21/2018 [facility] HEMATOLOGY MCH 28.9 27.0 - 31.0 04/21/2018 [facility] HEMATOLOGY MCHC 33.5 32.0 - 36.0 04/21/2018 [facility] [facility] HEMATOLOGY RDW 14.1 11.5 - 14.5 04/21/2018 [facility] HEMATOLOGY Eosinophils # 0.2 0.0 - 0.5 04/21/2018 [facility] HEMATOLOGY Monocytes 7.2 2.0 - 12.0 04/21/2018 [facility] HEMATOLOGY Segs 69.3 45.0 - 75.0 04/21/2018 [facility] HEMATOLOGY Lymphocytes 19.8 20.0 - 40.0 04/21/2018 [facility] HEMATOLOGY Monocytes # 0.6 0.0 - 0.8 04/21/2018 [facility] HEMATOLOGY Basophils 0.6 0.0 - 1.0 04/21/2018 [facility] HEMATOLOGY Neutrophils # 5.3 1.5 - 8.1 04/21/2018 [facility] Lymphocytes # 1.5 1.0 - 5.5 04/21/2018 [facility] HEMATOLOGY Eosinophils 3.1 0.0 - 4.0 04/21/2018 [facility] CHEM PANEL eGFR 70 04/20/2018 Result Comment: The eGFR is calculated using [...] should be multiplied by the estimated BMI. [facility] CHEM PANEL Glucose Lvl 121 70 - 99 04/20/2018 [facility] CHEM PANEL Potassium Lvl 4.4 3.5 - 5.1 04/20/2018 [facility] CHEM PANEL Calcium Lvl 8.0 8.5 - 10.5 04/20/2018 [facility] CHEM PANEL CO2 25 24 - 32 04/20/2018 [facility] CHEM PANEL BUN 18 7 - 22 04/20/2018 [facility] CHEM PANEL Chloride Lvl 106 95 - 109 04/20/2018 [facility] CHEM PANEL Creatinine Lvl 0.93 0.50 - 1.40 04/20/2018 [facility] CHEM PANEL Sodium Lvl 140 135 - 145 04/20/2018 [facility] CHEM PANEL AGAP 13.4 10.0 - 20.0 04/20/2018 [facility] HEMATOLOGY RDW 13.9 11.5 - 14.5 04/20/2018 [facility] HEMATOLOGY Platelet 195 133 - 450 04/20/2018 [facility] HEMATOLOGY MPV 8.4 7.4 - 10.4 04/20/2018 [facility] HEMATOLOGY WBC 10.1 3.7 - 10.4 04/20/2018 [facility] HEMATOLOGY Hgb 9.7 12.0 - 16.0 04/20/2018 [facility] HEMATOLOGY Hct 29.7 36.0 - 48.0 04/20/2018 [facility] HEMATOLOGY RBC 3.46 4.20 - 5.40 04/20/2018 [facility] HEMATOLOGY MCHC 32.6 32.0 - 36.0 04/20/2018 [facility] HEMATOLOGY MCV 86.0 80.0 - 98.0 04/20/2018 [facility] HEMATOLOGY MCH 28.0 27.0 - 31.0 04/20/2018 [facility] HEMATOLOGY INR 1.07 0.85 - 1.17 04/20/2018 [facility] HEMATOLOGY PT 13.9 12.0 - 14.7 04/20/2018 [facility] HEMATOLOGY Neutrophils # 7.6 1.5 - 8.1 04/20/2018 [facility] HEMATOLOGY Basophils 0.8 0.0 - 1.0 04/20/2018 [facility] HEMATOLOGY Monocytes # 0.5 0.0 - 0.8 04/20/2018 [facility] HEMATOLOGY Lymphocytes # 1.8 1.0 - 5.5 04/20/2018 [facility] HEMATOLOGY Eosinophils # 0.1 0.0 - 0.5 04/20/2018 [facility] HEMATOLOGY Basophils # 0.1 0.0 - 0.2 04/20/2018 [facility] HEMATOLOGY Lymphocytes 18.2 20.0 - 40.0 04/20/2018 [facility] HEMATOLOGY Segs 75.1 45.0 - 75.0 04/20/2018 [facility] HEMATOLOGY Monocytes 4.8 2.0 - 12.0 04/20/2018 [facility] HEMATOLOGY Eosinophils 1.1 0.0 - 4.0 04/20/2018 [facility] SPECIAL CHEMISTRY Hgb A1C 6.9 <=5.6 % 04/20/2018 [facility] SPECIAL CHEMISTRY Hgb A1C 6.9 <=5.6 % 04/15/2018 [facility] BLOOD BANK RESULTS Antibody Scrn Negative (04/15/18 12:55 PM) 04/15/2018 [facility] BLOOD BANK RESULTS ABO/Rh A POS 04/15/2018 [facility] ELECTROLYTES AGAP 14.6 10.0 - 20.0 04/15/2018 [facility] ELECTROLYTES eGFR 62 04/15/2018 Result Comment: The eGFR is calculated using [...] should be multiplied by the estimated BMI. [facility] ELECTROLYTES Chloride Lvl 103 95 - 109 04/15/2018 [facility] ELECTROLYTES CO2 24 24 - 32 04/15/2018 [facility] ELECTROLYTES Calcium Lvl 8.7 8.5 - 10.5 04/15/2018 [facility] ELECTROLYTES Glucose Lvl 95 70 - 99 04/15/2018 [facility] ELECTROLYTES BUN 18 7 - 22 04/15/2018 [facility] ELECTROLYTES Sodium Lvl 137 135 - 145 04/15/2018 [facility] ELECTROLYTES Creatinine Lvl 1.0 3 0.50 - 1.40 04/15/2018 [facility] ELECTROLYTES Potassium Lvl 4.6 3.5 - 5.1 04/15/2018 [facility] HEMATOLOGY Basophils # 0.1 0.0 - 0.2 04/15/2018 [facility] HEMATOLOGY PT 13.2 12.0 - 14.7 04/15/2018 [facility] HEMATOLOGY PTT 28.1 22.9 - 35.8 04/15/2018 [facility] HEMATOLOGY INR 1.00 0.85 - 1.17 04/15/2018 [facility] BLOOD BANK RESULTS RBC product Product available (04/15/18 12:49 PM) 04/15/2018 [facility] CHEM PANEL eGFR 71 11/27/2016 Result Comment: The eGFR is calculated [...] should be multiplied by the estimated BMI. [facility] CHEM PANEL Calcium Lvl 9.0 8.5 - 10.5 11/27/2016 [facility] CHEM PANEL CO2 28 24 - 32 11/27/2016 [facility] CHEM PANEL AGAP 11.7 10.0 - 20.0 11/27/2016 [facility] CHEM PANEL BUN 25 7 - 22 11/27/2016 [facility] CHEM PANEL Creatinine Lvl 0.92 0.50 - 1.40 11/27/2016 [facility] CHEM PANEL Potassium Lvl 4.7 3.5 - 5.1 11/27/2016 [facility] CHEM PANEL Sodium Lvl 136 135 - 145 11/27/2016 [facility] CHEM PANEL Chloride Lvl 101 95 - 109 11/27/2016 [facility] CHEM PANEL Glucose Lvl 190 70 - 99 11/27/2016 [facility] HEMATOLOGY Lymphocytes 31.1 20.0 - 40.0 11/27/2016 [facility] HEMATOLOGY Segs 59.7 45.0 - 75.0 11/27/2016 [facility] HEMATOLOGY Basophils 0.8 0.0 - 1.0 11/27/2016 [facility] HEMATOLOGY Segs-Bands # 4.5 1.5 - 8.1 11/27/2016 [facility] HEMATOLOGY Monocytes 5.7 2.0 - 12.0 11/27/2016 [facility] HEMATOLOGY Eosinophils 2.7 0.0 - 4.0 11/27/2016 [facility] HEMATOLOGY Basophils # 0.1 0.0 - 0.2 11/27/2016 [facility] HEMATOLOGY Eosinophils # 0.2 0.0 - 0.5 11/27/2016 [facility] HEMATOLOGY Monocytes # 0.4 0.0 - 0.8 11/27/2016 [facility] HEMATOLOGY Lymphocytes # 2.4 1.0 - 5.5 11/27/2016 [facility] HEMATOLOGY MCV 85.4 80.0 - 98.0 11/27/2016 [facility] HEMATOLOGY MCH 28.6 27.0 - 31.0 11/27/2016 [facility] HEMATOLOGY MCHC 33.5 32.0 - 36.0 11/27/2016 [facility] HEMATOLOGY MPV 8.4 7.4 - 10.4 11/27/2016 [facility] HEMATOLOGY Platelet 277 133 - 450 11/27/2016 [facility] HEMATOLOGY RDW 13.5 11.5 - 14.5 11/27/2016 [facility] HEMATOLOGY Hct 35.3 36.0 - 48.0 11/27/2016 [facility] HEMATOLOGY Hgb 11.8 12.0 - 16.0 11/27/2016 [facility] HEMATOLOGY RBC 4.14 4.20 - 5.40 11/27/2016 [facility] HEMATOLOGY WBC 7.6 3.7 - 10.4 11/27/2016 [facility] Pathology Reports No Data Provided for This Section Diagnostic Reports Report Value Date Source Knee 1-2 Views unilateral DX P atient Name: DMITRIY CHRISTIAN : 1965; Age: 52 years y/o Female MR: [id number] * RIGHT KNEE, postoperative 2 views HISTORY: [...] good position without evidence of complication. SL: [id number] 04/20/2018 [facility] Consultation Notes No Data Provided for This Section Discharge Summaries No Data Provided for This Section History and Physicals No Data Provided for This Section Vital Signs Vital Sign Value Date Comments Source Systolic (mm Hg) 117 04/22/2018 [facility] Diastolic (mm Hg) 75 04/22/2018 [facility] Temperature Oral (F) 98.1 F 04/22/2018 [facility] Respitory Rate 16 04/22/2018 [facility] Heart Rate 94 04/22/2018 [facility] Systolic (mm Hg) 124 04/22/2018 [facility] Diastolic (mm Hg) 76 04/22/2018 [facility] Temperature Oral (F) 98.3 F 04/22/2018 [facility] Heart Rate 74 04/22/2018 [facility] Respitory Rate 16 04/22/2018 [facility] Systolic (mm Hg) 126 04/22/2018 [facility] Diastolic (mm Hg) 77 04/22/2018 [facility] Respitory Rate 17 04/22/2018 [facility] Heart Rate 98 04/22/2018 [facility] Temperature Oral (F) 98.6 F 04/22/2018 [facility] BMI Calculated 28.66 04/21/2018 [facility] Weight 83 0 04/21/2018 [facility] Height 170.18 cm 04/21/2018 [facility] BMI Calculated 28.72 04/20/2018 [facility] Weight 83.182 04/20/2018 [facility] Height 170.18 cm 04/20/2018 [facility] Height 170.18 cm 04/15/2018 [facility] BMI Calculated 28.73 04/15/2018 [facility] Weight 83.21 04/15/2018 [facility] Systolic (mm Hg) 114 12/04/2016 [facility] Diastolic (mm Hg) 60 12/04/2016 [facility] Respitory Rate 14 12/04/2016 [facility] Systolic (mm Hg) 122 12/04/2016 [facility] Diastolic (mm Hg) 80 12/04/2016 [facility] Systolic (mm Hg) 109 12/04/2016 [facility] Diastolic (mm Hg) 67 12/04/2016 [facility] Respitory Rate 16 12/04/2016 [facility] Respitory Rate 17 12/04/2016 [facility] Heart Rate 82 11/27/2016 [facility] Weight 88.182 11/27/2016 [facility] BMI Calculated 31.38 11/27/2016 [facility] Height 167.64 cm 11/27/2016 [facility] Encounters Location Location Details Encounter Type Encounter Number Reason For Visit Attending Provider ADM Date DC Date Status Source [facility] [facility] [id number] David Melendez 12/04/2016 12/04/2016 [facility] Inpatient [id number] David Melendez 04/20/2018 04/22/2018 [facility] [place] [facility] [id number] David Melendez 04/23/2018 05/23/2018 [facility] [place] [facility] [place] [facility] [id number] David Melendez 05/25/2018 06/24/2018 [facility] [place] Procedures Procedure Code Date Perfomer Comments Source Arthroscopy of knee [id number] [facility] [place] section [id number] [facility] [place] Operation [id number] [facility] [place] Assessment and Plan No Data Provided for This Section Plan of Care No Data Provided for This Section Social History Social History Date Source Social History TypeResponse Substance Abuse Use: None. Alcohol Never Smoking Status Never smoker; Exposure to Tobacco Smoke None; Cigarette Smoking Last 365 Days No; Reg Smoking Cessation Counseling No entered on: 04/20/18 11/27/2016 [facility] Social History TypeResponse Substance Abuse Use: None. Alcohol Never Smoking Status Never smoker; Exposure to Tobacco Smoke None; Cigarette Smoking Last 365 Days No; Reg Smoking Cessation Counseling No entered on: 04/20/18 11/27/2016 [facility] Family History No Data Provided for This Section Advance Directives No Data Provided for This Section Functional Status No Data Provided for This Section
[2020-06-21] MEDS: PANTOPRAZOLE SOD 40 MG TABEC PO SCH (09:00)
[2020-06-21] MEDS: METOPROLOL TARTRATE 25 MG TAB PO SCH (09:00)
--- OUTSIDE RECORDS SUMMARY | 2020-06-21 09:00 | XMS REPORT | Continuity of Care Document ---
Author Author [facility] Organization [facility] Address [address] [place] [address] Phone Unavailable Care Team Providers Care Mortgage Loan Assistant Name Role Phone DENIZ ARROYO Attphys Unavailable Parth Melendez Attphys Parth Melendez Admphys Problems Condition Name Condition Details Condition Category Status Onset Date Resolution Date Last Treatment Date Treating Clinician Comments Source RIGHT KNEE SURGERY [id number] RIGH T KNEE SURGERY [id number] Active 04/20/2018 [facility] [place] [facility] Active 2018-04-20 08:00:00 2018-04-23 10:37:00 Rajiv Ochoa RIGHT TOTAL KNEE RIGH T TOTAL KNEE Active 04/20/2018 [facility] [place] Diagnosis Active 2018-04-20 08:00:00 2018-05-27 14:57:00 Rajiv Ochoa UNK UNK Active 03/23/2018 [facility] Active 2018-03-23 00:00:00 2018-04-15 12:06:00 Georgi Ochoa M17.11 M25.561 M17. 11 M25.561 Active 03/23/2018 [facility] Active 2018-03-23 00:00:00 2018-04-21 09:06:00 Rajiv Ochoa DX: S43.421A=SPRAIN OF RIGHT ROTATOR CUF DX: S43.421A=SPRAIN OF RIGHT ROTATOR CUF Active 05/08/2017 [facility] Active 2017-05-08 00:00:00 2017-06-25 15:29:00 Rajiv Ochoa Pain in right knee Pain in right knee 01/11/2019 [facility] [place] Problem 2019-01-11 11:33:12 Rajiv Ochoa Stiffness of right knee, not elsewhere classified Stiffness of right knee, not elsewhere classified 01/11/2019 [facility] [place] Problem 2019-01-11 11:33:12 [facility] Muscle weakness (generalized) Muscle weakness (generalized) 01/11/2019 [facility] [place] Problem 2019-01 11:33:12 [facility] Difficulty in walking, not elsewhere classified Difficulty in walking, not elsewhere classified 01/11/2019 [facility] [place] Problem 2019-01-11 11:33:12 [facility] Unilateral primary osteoarthritis, right knee Unilateral primary osteoarthritis, right knee 11/09/2018 [facility] Problem 2018-11-09 11:47:10 [facility] Type 2 diabetes mellitus without complications Type 2 diabetes mellitus without complications 11/09/2018 [facility] Problem 2018-11-09 11:47:10 [facility] longterm (current) use of insulin longterm (current) use of insulin 11/09/2018 [facility] Problem 9 11:47:10 [facility] Pure hypercholesterolemia, unspecified Pure hypercholesterolemia, unspecified 11/09/2018 [facility] Problem 2018-11-09 11:47:10 [facility] Gastro-esophageal reflux disease without esophagitis Gastro-esophageal reflux disease without esophagitis 11/09/2018 [facility] Problem 2018-11-09 11:47:10 [facility] Anxiety disorder, unspecified Anxiety disorder, unspecified 11/09/2018 [facility] Problem 2018-11-09 1 1:47:10 [facility] Anemia, unspecified Anem ia, unspecified 11/09/2018 [facility] Problem 2018-11-09 11:47:10 [facility] Anxiety (finding) Anxi ety (finding) Active Problem 01/11/2019 [facility] [place] Problem Active 2019-01-11 11:3 3:12 [facility] Diabetes mellitus (disorder) D iabetes mellitus (disorder) [facility] 2019-01-11 11:33:12 [facility] Heartburn (finding) Hear tburn (finding) Active Problem 01/11/2019 [facility] Problem Active 2019-01-11 11:33:12 [facility] Arthritis (disorder) Arth ritis (disorder) Active Problem 01/11/2019 [facility] [place] Problem Active 2019-01-11 11:33:12 [facility] UNILATERAL PRIMARY OSTEOARTHRITIS, RIGHT UNILATERAL PRIMARY OSTEOARTHRITIS, RIGHT Active [facility] Diagnosis Active 2018-04-21 09:06:00 [facility] Don PAIN IN RIGHT KNEE PAIN IN RIGHT KNEE Active [facility] Active 2018-04-21 09:06:00 In jomiguel angel Don [employer] [employer] EXAM W/ [facility] [employer]AL [employer] MEDICAL EXAM W/ Active [facility] Active 2018-04-20 07:58:00 [facility] PAIN IN RIGHT HIP PAIN IN RIGHT HIP Active [facility] Active 2018-04-20 07:58:00 [facility] PAIN IN LEFT HIP PAIN IN LEFT HIP Active [facility] Active 2018-04-20 07:58:00 [facility] Presence of right artificial knee joint Presence of right artificial knee joint 06/30/2018 01/11/2019 [facility] Problem 2018-06-30 05:39:00 2019-01-11 11:33:12 2019-01-11 11:33:12 Rajiv Ochoa Aftercare following joint replacement surgery Aftercare following joint replacement surgery 05/28/2018 12/09/2018 [facility] Problem 2018-05-28 04:25:17 2018-12-09 11:10:09 2018-12-09 11:10:09 [facility] Allergies, Adverse Reactions, Alerts Allergy Name Allergy Type Status Severity Reaction(s) Onset Date Inacti ve Date Treating Clinician Comments Source morphine morphine Active Memori miguel angel Ochoa Social History Social Habit Start Date Stop Date Quantity Comments Source Social History 2016-11-27 20:11:01 2016-11-27 20:11:01 [facility] Medications Ordered Medication Name Filled Medication Name Start Date Stop Da te Current Medication? Ordering Clinician Indication Dosage Frequency Signature (SIG) Comments Components Source Acetaminophen 325 MG / Hydrocodone Bitartrate 10 MG Or al Tablet [Lucas 10/325] 2018-04-22 12:38:00 No 1-2 tab, PO, Q6H, PRN Pain, X 14 day, # 60 tab, 0 Refill(s), given to patient [facility] Chidi montesankita Metformin 2018-04-21 13:00:00 No Notes: (Same as: Glucophage) Take with meal [facility] Don Enoxaparin 2018-04-21 11:00:00 No Notes: (S clive as: Lovenox) [facility] Don Lunesta 2018-04-21 02:00:00 No 3 mg, Route: PO, Bedtime, Dosing Weight 83.21, kg, Start date: 04/20/18 21:00:00 CDT, Duration: 30 day, Stop date: 05/19/18 21:00:00 CDT Rajiv gleason zolpidem 2018-04-21 02:00:00 No Notes: (Ian e As: Rod) [facility] Don Insulin Lispro 2018-04-20 21:12:00 No Notes: (Same as: Humalog ) Roll in palms of hands gently; Do not shake `vigorously. "Single Patient Use Only " WASTE: F/P - Black; E - Municipal Trash Bin Stable for 28 days at room temperature. Expires in days from Date [facility] Don Dextrose 50% Syringe 2018-04-20 21:12:00 No 25 gm, 50 mL, Route: IVP, Drug Form: INJ, Dosing Weight 83.21, kg, PRN, PRN Blood Glucose Results, Start date: 04/20/18 16:12:00 CDT, Duration: 30 day, Stop date: 05/20/18 16:11:00 CDT [facility] Don Glucagon 2018-04-20 21:12:00 No 1 mg, Route: IM, Drug form: PDR/INJ, PRN, Dosing Weight 83.21, kg, PRN Blood Glucose Results, Start date: 04/20/18 16:12:00 CDT, Duration: 30 day, Stop date: 05/20/18 16:11:00 CDT [facility] Cefazolin 2018-04-20 21:00:00 No Notes: (Same As: Daniel Smith) MEDICATION WASTE Product Size: 1000 mg Product Wasted: ___ mg [facility] Zofran 2018-04-20 20:32:00 No Notes: (Same as: Zofrneisha) MEDICATION WASTE Product Size: 4 mg Product Wasted: ___ mg [facility] Lovenox 2018-04-20 17:00:00 No 30 mg, Route: SUB-Q, Drug form: INJ, [id number], Dosing Weight 83.21, kg, Start date: 04/20/18 12:00:00 CDT, Duration: 30 day, Stop date: 05/20/18 0:00:00 CDT [facility] Don Dilaudid 2018-04-20 16:46:00 No Notes: Same as: Dilaudid Rajiv Ochoa Acetaminophen 325 MG / Hydrocodone Bitartrate 10 MG Or al Tablet [Lucas 10/325] 2018-04-20 16:46:00 No Note s: Do not exceed 4gm/day of acetaminophen. (Same as: Lucas 325/10) [facility] Don Valium 2018-04-20 16:44:00 No Notes: (Same as: Valium) [facility] Acetaminophen 325 MG / Hydrocodone Benny trate 7.5 MG Oral Tablet [Lucas 7.5/325] 2018-04-20 16:44:00 No 1 tab, Route: PO, Drug Form: TAB, Dosing Weight 83.21, kg, Q4H, PRN Pain Score 4-6, Start date: 04/20/18 11:44:00 CDT, Duration: 30 day, Stop date: 05/20/18 11:43:00 CDT [facility] Tylenol 2018-04-20 16:44:00 No Notes: Do not exceed 4 gm/day. (Same as: Tylenol) [facility] Don Lactated Ringers IV 1,000 mL 2018-04-20 16:44:00 No 1,000 mL, Rate: 75 ml/hr, Infuse over: 13.3 hr, Route: IV, Dosing Weight 83.21 kg, Total Volume: 1,000, Start date: 04/20/18 11:44:00 CDT, Duration: 30 day, Stop date: 05/20/18 11:43:00 CDT, 2, m2 [facility] neostigmine (ANES) 2018-04-20 16:43:00 No Route: IV, Drug form: INJ, ONCE, Stop date: 04/20/18 11:43:00 CDT M nicole Ochoa glycopyrrolate (ANES) 2018-04-20 16:43:00 No Route: IV, Drug form: INJ, ONCE, Stop date: 04/20/18 11:43:00 CDT [facility] ondansetron (ANES) 2018-04-20 16:32:00 No Route: IV, Drug form: INJ, ONCE, Stop date: 04/20/18 11:32:00 [facility] 2018-04-20 16:32:00 No Route: IV, Drug form: INJ, ONCE, Stop date: 04/20/18 11:32:00 CDT Rajiv Ochoa ceFAZolin ([facility]) 2018-04-20 16:07:00 No Route: IV, Drug form: INJ, ONCE, Stop date: 04/20/18 11:07:00 CDT [facility] rocuronium ([facility]) 2018-04-20 16:07:00 No Route: IV, Drug form: INJ, ONCE, Stop date: 04/20/18 11:07:00 [facility] lidocaine ([facility]) 2018-04-20 16:07:00 No Route: IV, Drug form: INJ, ONCE, Stop date: 04/20/18 11:07:00 CD[facility] fentaNYL ([facility]) 2018-04-20 16:07:00 No Route: IV, Drug form: INJ, ONCE, Stop date: 04/20/18 11:07:00 [facility] 2018-04-20 16:07:00 No Route: IV, Drug form: INJ, ONCE, Stop date: 04/20/18 11:07:00 [facility] 2018-04-20 16:02:00 No Route: IV, Drug form: SOLN, ONCE, Stop date: 04/20/18 11:02:00 [facility] Lactated Ringers Injection IV ([facility]) 1000 mL 2018-04-20 15:17:00 No Route: IV, Total Volume: 1,000, Start date: 04/20/18 10:17:00 CDT, Stop date: 04/20/18 11:17:00 CDT Rajiv Ochoa Hydralazine 2018-04-20 14:52:00 No 10 mg, Route: IVP, Q20Min, Dosing Weight 83.21, kg, PRN Elevated BP, Start date: 04/20/18 9:52:00 CDT, Duration: 2 doses or times, Stop date: Limited # of times [facility] esmolol 2018-04-20 14:52:00 No 10 mg, Route: IVP, Q5Min, Dosing Weight 83.21, kg, PRN Other -See Comment, Start date: 04/20/18 9:52:00 CDT, Duration: 5 doses or times, Stop date: Limited # of times [facility] Labetalol 2018-04-20 14:52:00 No 10 mg, Route: IVP, Q5Min, Dosing Weight 83.21, kg, PRN Elevated BP, Start date: 04/20/18 9:52:00 CDT, Duration: 5 doses or times, Stop date: Limited # of times [facility] Ondansetron 2018-04-20 14:52:00 No 4 mg, Route: IVP, ONCE, Dosing Weight 83.21, kg, PRN Nausea & Vomiting, Start date: 04/20/18 9:52:00 CDT [facility] Meperidine 2018-04-20 14:52:00 No 12.5 mg, Route: IVP, Q30Min, Dosing Weight 83.21, kg, PRN Other -See Comment, For shivering, Start date: 04/20/18 9:52:00 CDT, Duration: 2 doses or times, Stop date: Limited # of times [facility] Albuterol 0.83 MG/ML Inhalant Solution 2018-04-20 14:52:00 No 2.49 mg, Route: NEB, Q20Min, Dosing Weight 83.21, kg, PRN Wheezing, Priority: STAT, Start date: 04/20/18 9:52:00 CDT, Duration: 30 day, Stop date: 05/20/18 9:51:00 CDT [facility] Diphenhydramine 2018-04-20 14:52:00 No 12.5 mg, Route: IVP, Drug form: INJ, Q6H, Dosing Weight 83.21, kg, PRN Itching, Start date: 04/20/18 9:52:00 CDT, Duration: 30 day, Stop date: 05/20/18 9:51:00 CDT [facility] Naloxone 2018-04-20 14:52:00 No 0.4 mg, Route: IVP, Q2MIN, Dosing Weight 83.21, kg, PRN Narcotic Reversal, Start date: 04/20/18 9:52:00 CDT, Duration: 8 doses or times, Stop date: Limited # of times [facility] Flumazenil 2018-04-20 14:52:00 No 0.2 mg, Route: IVP, PRN, Dosing Weight 83.21, kg, PRN Benzodiazepine Reversal, Initial dose, Start date: 04/20/18 9:52:00 CDT, Duration: 30 day, Stop date: 05/20/18 9:51:00 CDT [facility] Fentanyl 2018-04-20 14:52:00 No 25 microgram, Route: IVP, Q5Min, Dosing Weight 83.21, kg, PRN Pain Score 4-6, Priority: Routine, Start date: 04/20/18 9:52:00 CDT, Duration: 4 doses or times, Stop date: Limited # of times [facility] Oxycodone 2018-04-20 14:52:00 No 10 mg, Route: PO, Drug form: TAB, Q4H, Dosing Weight 83.21, kg, PRN Pain Score 7-10, Start date: 04/20/18 9:52:00 CDT, Duration: 30 day, Stop date: 05/20/18 9:51:00 CDT [facility] Acetaminophen 2018-04-20 14:52:00 No 1,000 mg, Route: PO, Drug form: TAB, ONCE, Dosing Weight 83.21, kg, PRN Pain Score 1-3, Start date: 04/20/18 9:52:00 CDT [facility] LR IV 1000 mL 2018-04-20 13:53:00 No 1,000 mL, Rate: 25 ml/hr, Infuse over: 40 hr, Route: IV, Dosing Weight 83.21 kg, Total Volume: 1,000, Start date: 04/20/18 8:53:00 CDT, Duration: 30 day, Stop date: 05/20/18 8:52:00 CDT, 2, m2 [facility] celecoxib 2018-04-20 13:00:00 No 90 mL/min), Start date: 04/20/18 8:00:00 CDT, Duration: 30 day, Stop date: 05/20/18 7:59:00 CDT [facility] ropivacaine 2018-04-20 13:00:00 No 100 mL, Route: InFILtration(local), Drug Form: INJ, Dosing Weight 83.21, kg, ONCALL, Start date: 04/20/18 8:00:00 CDT, Duration: 30 day, Stop date: 05/20/18 7:59:00 CDT [facility] Don gabapentin 2018-04-20 13:00:00 No 300 mg, Route: PO, ONCALL, Dosing Weight 83.21, kg, Start date: 04/20/18 8:00:00 CDT, Duration: 30 day, Stop date: 05/20/18 7:59:00 CDT [facility] Don ropivacaine 2018-04-20 11:00:00 No Notes: NOT FOR IV use Ropivacaine 5 mg/mL (49.25 mL) Epinephrine 1 mg/mL (0.5 mL) Clonidine 0.1 mg/mL (0.8 mL) Ketorolac 30 mg/mL (1 mL) Normal Saline 48.45 mL Rajiv Ochoa Diazepam 5 MG Oral Tablet [Valium] 2018-04-19 15:25:00 No 5 mg = 1 tab, PO, QID, PRN Spasm, # 30 tab, 0 Refill(s) Rajiv Ochoa Eszopiclone 3 MG Oral Tablet [Lunesta] 2018-04-19 15:25:00 No 3 mg = 1 tab, PO, Bedtime, PRN for insomnia, # 30 tab, 0 Refill(s) Rajiv Ochoa Cephalexin 500 MG Oral Capsule [Keflex] 2018-04-19 15:25:00 No 500 mg = 1 cap, PO, QID, X 10 day, # 40 cap, 0 Refill(s) Rajiv Ochoa 0.3 ML Enoxaparin sodium 100 MG/ML Prefilled Syringe [Loveno x] 2018-04-19 15:25:00 No 30 mg, SUB-Q, Q12H, X 14 day, # 28 inj, 0 Refill(s) Rajiv Ochoa Humalog Mix 75/25 2018-04-15 17:35:00 Yes 10 unit, SUB-Q, Daily, 0 Refill(s) Rajiv Ochoa Lorazepam 1 MG Oral Tablet 2018-04-15 17:33:00 Yes 1 mg = 1 tab, PO, Bedtime, 0 Refill(s) Rajiv Ochoa atorvastatin 20 mg oral tablet 2018-04-15 17:32:00 Yes 20 mg = 1 tab, PO, Daily, 0 Refill(s) Rajiv gleason Ketorolac 2016-12-04 17:00:00 No 15 mg, Route: IVP, Q6H, Dosing Weight 88.182, kg, Start date: 12/04/16 12:00:00 CDT, Duration: 6 doses or times, Stop date: 12/05/16 18:00:00 CDT Rajiv Ochoa Oxycodone Hydrochloride 5 MG Oral Tablet 2016-12-04 14:31:00 No 10 mg, Route: PO, Drug form: TAB, ONCE, Dosing Weight 88.182, kg, PRN Pain Score 7- 10, Start date: 12/04/16 9:31:00 CDT [facility] perez Ochoa ondansetron (ANES) 2016-12-04 13:36:00 No Route: IV, Drug form: INJ, ONCE, Stop date: 12/04/16 8:36:00 CDT ruizkhoimiguel angel [facility] ceFAZolin (ANES) 2016-12-04 13:36:00 No Route: IV, Drug form: INJ, ONCE, Stop date: 12/04/16 8:36:00 CDT In sharmila Pritchettann lidocaine (ANES) 2016-12-04 13:36:00 No Route: IV, Drug form: INJ, ONCE, Stop date: 12/04/16 8:36:00 CDT In sharmila [facility] midazolam (ANES) 2016-12-04 13:36:00 No Route: IV, Drug form: SOLN, ONCE, Stop date: 12/04/16 8:36:00 CDT In sharmila [facility]ttann propofol (ANES) 2016-12-04 13:36:00 No Route: IV, Drug form: INJ, ONCE, Stop date: 12/04/16 8:36:00 CDT In sharmila Don fentaNYL (ANES) 2016-12-04 13:36:00 No Route: IV, Drug form: INJ, ONCE, Stop date: 12/04/16 8:36:00 CDT In sharmila Prit[facility]ann Phenergan 2016-12-04 13:30:00 No 12.5 mg, Route: IVPB, Q4H, Dosing Weight 88.182, kg, PRN Nausea & Vomiting, Start date: 12/04/16 8:30:00 CDT, Duration: 30 day, Stop date: 01/03/17 8:29:00 CDT [facility] Zofran 2016-12-04 13:30:00 No 4 mg, Route: IV, Drug form: INJ, Q4H, Dosing Weight 88.182, kg, PRN Nausea, Start date: 12/04/16 8:30:00 CDT, Duration: 30 day, Stop date: 01/03/17 8:29:00 CDT [facility] Tramadol 2016-12-04 13:30:00 No 50 mg, Route: PO, Drug form: TAB, Q6H, Dosing Weight 88.182, kg, PRN Pain Score 1-3, Start date: 12/04/16 8:30:00 CDT, Duration: 30 day, Stop date: 01/03/17 8:29:00 CDT [facility] Hydromorphone 2016-12-04 13:30:00 No 0.3 mg, Route: IVP, Q3H, Dosing Weight 88.182, kg, PRN Pain Score 4-6, Start date: 12/04/16 8:30:00 CDT, Duration: 30 day, Stop date: 01/03/17 8:29:00 CDT [facility] Morphine 2016-12-04 13:30:00 No 2 mg, Route: IVP, Q3H, Dosing Weight 88.182, kg, PRN Pain Score 1-3, Start date: 12/04/16 8:30:00 CDT, Duration: 30 day, Stop date: 01/03/17 8:29:00 CDT [facility] Acetaminophen 325 MG / Hydrocodone Bitartrate 5 MG Oral Tabl et 2016-12-04 13:30:00 No Route: PO, Dosing Weight 88.182, kg, Q4H, PRN Pain Score 4-6, Start date: 12/04/16 8:30:00 CDT, Duration: 30 day, Stop date: 01/03/17 8:29:00 CDT [facility] Albuterol 0.833 MG/ML / Ipratropium [place] 0.167 MG/ML Inha lant Solution 2016-12-04 13:13:00 No 3 mL, Route: NEB, Dosing Weight 88.182, kg, ONCE, STAT, Start date: 12/04/16 8:13:00 CDT, Stop date: 12/04/16 8:13:00 CDT [facility] Calcium Chloride 0.0014 MEQ/ML / Potassi um Chloride 0.004 MEQ/ML / Sodium Chloride 0.103 MEQ/ML / Sodium Lactate 0.028 MEQ/ML Injectable Solution 2016-12-04 13:13:00 No 1,000 mL, Rate: 25 ml/hr, Infuse over: 40 hr, Route: IV, Dosing Weight 88.182 kg, Total Volume: 1,000, Start date: 12/04/16 8:13:00 CDT, Duration: 30 day, Stop date: 01/03/17 8:12:00 CDT [facility] Ondansetron 2016-12-04 12:54:00 No 4 mg, Route: IVP, ONCE, Dosing Weight 88.182, kg, PRN Nausea & Vomiting, Start date: 12/04/16 7:54:00 CDT [facility] Meperidine 2016-12-04 12:54:00 No 12.5 mg, Route: IVP, Q30Min, Dosing Weight 88.182, kg, PRN Other -See Comment, For shivering, Start date: 12/04/16 7:54:00 CDT, Duration: 2 doses or times, Stop date: Limited # of times [facility] Promethazine 2016-12-04 12:54:00 No 6.25 mg, Route: IVPB, ONCE, Dosing Weight 88.182, kg, PRN Nausea & Vomiting, Start date: 12/04/16 7:54:00 CDT [facility] Calcium Chloride 0.0014 MEQ/ML / Potassi um Chloride 0.004 MEQ/ML / Sodium Chloride 0.103 MEQ/ML / Sodium Lactate 0.028 MEQ/ML Injectable Solution 2016-12-04 12:54:00 No 1,000 mL, Rate: 125 ml/hr, Infuse over: 8 hr, Route: IV, Dosing Weight 88.182 kg, Total Volume: 1,000, Start date: 12/04/16 7:54:00 CDT, Duration: 30 day, Stop date: 01/03/17 7:53:00 CDT [facility] Acetaminophen 2016-12-04 12:54:00 No 1,000 mg, Route: PO, Drug form: TAB, ONCE, Dosing Weight 88.182, kg, PRN Pain Score 1-3, Start date: 12/04/16 7:54:00 CDT, Duration: 1 doses or times, Stop date: Limited # of times [facility] Oxycodone 2016-12-04 12:54:00 No 5 mg, Route: PO, Drug form: TAB, Q4H, Dosing Weight 88.182, kg, PRN Pain Score 4-6, Start date: 12/04/16 7:54:00 CDT, Duration: 30 day, Stop date: 01/03/17 7:53:00 CDT [facility] esmolol 2016-12-04 12:54:00 No 10 mg, Route: IVP, Q5Min, Dosing Weight 88.182, kg, PRN Other -See Comment, Start date: 12/04/16 7:54:00 CDT, Duration: 5 doses or times, Stop date: Limited # of times [facility] Hydralazine 2016-12-04 12:54:00 No 10 mg, Route: IVP, Q20Min, Dosing Weight 88.182, kg, PRN Elevated BP, Start date: 12/04/16 7:54:00 CDT, Duration: 2 doses or times, Stop date: Limited # of times [facility] Labetalol 2016-12-04 12:54:00 No 10 mg, Route: IVP, Q5Min, Dosing Weight 88.182, kg, PRN Elevated BP, Start date: 12/04/16 7:54:00 CDT, Duration: 5 doses or times, Stop date: Limited # of times [facility] Hydromorphone 2016-12-04 12:54:00 No 0.5 mg, Route: IVP, Q5Min, Dosing Weight 88.182, kg, PRN Pain Score 7-10, Start date: 12/04/16 7:54:00 CDT, Duration: 4 doses or times, Stop date: Limited # of times [facility] Diphenhydramine 2016-12-04 12:54:00 No 12.5 mg, Route: IVP, Drug form: INJ, Q6H, Dosing Weight 88.182, kg, PRN Itching, Start date: 12/04/16 7:54:00 CDT, Duration: 30 day, Stop date: 01/03/17 7:53:00 CDT [facility] Flumazenil 2016-12-04 12:54:00 No 0.2 mg, Route: IVP, PRN, Dosing Weight 88.182, kg, PRN Benzodiazepine Reversal, Initial dose, Start date: 12/04/16 7:54:00 CDT, Duration: 30 day, Stop date: 01/03/17 7:53:00 CDT [facility] Albuterol 0.83 MG/ML Inhalant Solution 2016-12-04 12:54:00 No 2.49 mg, Route: NEB, Q20Min, Dosing Weight 88.182, kg, PRN Wheezing, Priority: STAT, Start date: 12/04/16 7:54:00 CDT, Duration: 30 day, Stop date: 01/03/17 7:53:00 CDT [facility] Don Naloxone 2016-12-04 12:54:00 No 0.4 mg, Route: IVP, Q2MIN, Dosing Weight 88.182, kg, PRN Narcotic Reversal, Start date: 12/04/16 7:54:00 CDT, Duration: 8 doses or times, Stop date: Limited # of times [facility] Don LR 1000 mL INJ (ANES) 2016-12-04 12:50:00 No Route: IV, Total Volume: 1,000, Start date: 12/04/16 7:50:00 CDT, Stop date: 12/04/16 8:50:00 CDT [facility] Cephalexin 500 MG Oral Capsule [Keflex] 2016-12-04 12:25:00 Yes 500 mg = 1 cap, PO, QID, X 10 day, # 40 cap, 0 Refill(s) [facility] Omeprazole 2016-11-27 20:24:00 Yes PO, Daily , 0 Refill(s) [facility] Vitamin B12 2016-11-27 20:24:00 Yes 0 Refill (s) [facility] Vitamin C 2016-11-27 20:23:00 Yes Daily, 0 R efill(s) [facility] multivitamin 2016-11-27 20:23:00 Yes Daily, 0 Refill(s) Rajiv Ochoa lisinopril 10 mg oral tablet 2016-11-27 20:23:00 Yes 10 mg = 1 tab, PO, Daily, 0 Refill(s) Rajiv Ochoa Simvastatin 40 MG Oral Tablet [Zocor] 2016-11-27 20:23:00 Y es 40 mg = 1 tab, PO, Bedtime, 0 Refill(s) Angelito Islas Metformin hydrochloride 1000 MG Oral Tablet 2016-11-27 20:23:00 Yes 1,000 mg = 1 tab, PO, BID, 0 Refill(s) M nicole Ochoa Vital Signs Vital Name Observation Time Observation Value Comments Source Systolic (mm Hg) 2018-04-22 16:41:00 Sridhar rial Topping Diastolic (mm Hg) 2018-04-22 16:41:00 Mem orial Topping Temperature Oral (F) 2018-04-22 16:41:00 98.1 F [facility] Respitory Rate 2018-04-22 16:41:00 [facility] Heart Rate 2018-04-22 16:41:00 [facility] Systolic (mm Hg) 2018-04-22 13:00:00 [facility] Diastolic (mm Hg) 2018-04-22 13:00:00 [facility] Temperature Oral (F) 2018-04-22 13:00:00 98.3 F [facility] Heart Rate 2018-04-22 13:00:00 [facility] Respitory Rate 2018-04-22 13:00:00 [facility] Systolic (mm Hg) 2018-04-22 09:00:00 Sridhar [facility] Diastolic (mm Hg) 2018-04-22 09:00:00 [facility] Respitory Rate 2018-04-22 09:00:00 [facility] Heart Rate 2018-04-22 09:00:00 [facility] Temperature Oral (F) 2018-04-22 09:00:00 98.6 F [facility] BMI Calculated 2018-04-21 13:00:00 Angelito Palumboann Weight 2018-04-21 13:00:00 [facility] Height 2018-04-21 13:00:[facility] 2018-04-20 21:40:00 [facility] Weight 2018-04-20 21:40:00 [facility] Height 2018-04-20 21:40:00 170.18 cm [facility] Height 2018-04-15 17:27:00 170.18 cm [facility] BMI Calculated 2018-04-15 17:27:00 [facility] Weight 2018-04-15 17:27:00 [facility] Systolic (mm Hg) 2016-12-04 15:15:00 Sridhar [facility] Diastolic (mm Hg) 2016-12-04 15:15:00 [facility] Respitory Rate 2016-12-04 14:30:00 [facility] Systolic (mm Hg) 2016-12-04 14:30:00 [facility] Diastolic (mm Hg) 2016-12-04 14:30:00 [facility] Systolic (mm Hg) 2016-12-04 14:15:00 Sridhar [facility] Diastolic (mm Hg) 2016-12-04 14:15:00 [facility] Respitory Rate 2016-12-04 14:15:00 [facility] Respitory Rate 2016-12-04 14:00:00 [facility] Heart Rate 2016-11-27 20:03:00 [facility] Weight 2016-11-27 19:58:00 [facility] BMI Calculated 2016-11-27 19:58:00 [facility] Height 2016-11-27 19:58:00 167.64 cm [facility] Procedures Procedure Date / Time Performed Performing Clinician Xavier calvin Arthroscopy of [facility] Operation [facility] Encounters Start Date/Time End Date/Time Encounter [facility] En[facility] ID Source 2018-05-25 11:50:00 2018-06-23 23:59:00 Outpatient Mirian Melendez [id number] 2018-04-23 09:55:00 2018-05-22 23:59:00 Outpatient Mirian Melendez [id number] 2018-04-20 07:57:00 2018-04-22 14:16:00 [id number] 2016-12-04 05:17:00 2016-12-04 10:25:00 [id number] Results Test Description Test Time Test Comments Results Result Comments Source CHEST 2 VIEWS 2020-06-18 16:24:00 [facility] 1965 Sex: F [place] [address] Patient Name: DMITRIY CHRISTIAN MR #: [id number] : 1965 Age/Sex: 54/F Req #: [id number] [facility] Physician: Ordered by: DENIZ ARROYO MD Report #: [id number] Location: OR Room/Bed: Procedure: [id number] DX/CHEST 2 VIEWS Exam Date: Exam Time: REPORT STATUS: Signed Exam: CHEST 2 VIEWS Date: 06/18/2020 4:24 PM INDICATION: PRE-OP Comparison: None FINDINGS: Lines/Tubes:None Lungs:The lungs are well inflated. No focal consolidation or pulmonary edema. Pleura:No pleural effusion. No pneumothorax. Heart/Mediastinum:The cardiomediastinal silhouette is normal in size and contour. Bones/Soft Tissues: No acute osseous abnormality. Mild multilevel degenerative changes of the spine are noted. Upper abdomen: Unremarkable. IMPRESSION: Negative for acute intrathoracic process. Signed by: Iveth Morrow MD on 06/18/2020 4:27 PM Dictated By: IVETH MORROW MD 26 Transcribed By: ANDRE on 06/18/201626 COPY TO: DENIZ ARROYO MD SCR MAMM BILATERAL MELISSA CAD DIGITAL 2018-07-19 11:02:46 - SCR MAMM BILATERAL MELISSA CAD DIGITALBILATERAL DIGITAL SCREENING MAMMOGRAM 3D/2D WITH CAD: 07/14/2018CLINICAL: Asymptomatic. Digital breast tomosynthesis was performed in addition to routine CC and MLO views. Current mammographic images were evaluated by either a [employer] M-Vu or a [employer] ImageZentyalcker CAD (computer aided detection system). Comparison is made to exams dated 08/26/2016 mammogram - [facility], 04/12/2015 mammogram - [facility], 07/29/2013 mammogram, and 01/30/2010 mammogram - [facility]. The tissue of both breasts is predominantly fatty. No suspicious mass, architectural distortion, malignant type calcification, or lymph node abnormality detected. Breast architecture is stable compared to prior exams.IMPRESSION: NEGATIVEThere is no mammographic evidence of malignancy. Resume annual screening mammography in one year. Natali michelle/penrad:07/19/2018 11:02:46 Liquor Merchant: Sabra Callejas , [facility] sent: BIRADS 1-2 Normal Mammogram BI-RADS: 1 Negative HEMATOLOGY 2018-04-22 09:29:00 6.1 [facility] HEMATOLOGY 2018-04-22 09:29:00 1.6 [facility] HEMATOLOGY 2018-04-22 09:29:00 9.0 [facility] HEMATOLOGY 2018-04-22 09:29:00 0.8 [facility] HEMATOLOGY 2018-04-22 09:29:00 0.1 [facility] HEMATOLOGY 2018-04-22 09:29:00 0.3 [facility] HEMATOLOGY 2018-04-22 09:29:00 0.7 [facility] HEMATOLOGY 2018-04-22 09:29:00 18.3 [facility] HEMATOLOGY 2018-04-22 09:29:00 71.7 [facility] HEMATOLOGY 2018-04-22 09:29:00 8.4 [facility] HEMATOLOGY 2018-04-22 09:29:00 Test Item MCH (test code = MCH) 28.6 pg 27.0-31.0 [facility] YrrqldhDSEMLKLQSE9985-47-42 09:29:0033.2[facility]ann[facility]OLOGY 2018-04-22 09:29:65485Kbbsnwme RkcrgtdTATCPVAJLE8019-74-83 09:29:0014.0[facility] EruvszqPJYAXNSUZW6278-57-44 09:29:009.1[facility] FpzvtbfBOTRTAOJJX1841-82-68 09:29:0086.0[facility] NqrzwsaPEANTVOOGK0727-17-64 09:29:0027.5[facility] IOLQYGEZHN4238-60-54 09:29:008.5[facility] SteokcbKMSEGZNVEP2495-63-57 09:29:00 3.19[facility] GeugxkmTGZHOZUZRJ8587-58-51 10:09:007.6[facility]annHEMATOLOGY 2018-04-21 10:09:003.23[facility] WncnmxpEJKTYEWTXV7201-68-29 10:09:009.3[facility] RmbnlvqLFOYIOEFIU2141-85-33 10:09:0027.9[facility] WtsjpwcWXUFIYAROA0261-30-27 10:09:0086.3[facility] YhiksdfKDUCQWGYOJ5239-06-91 10:09:48106Plu[facility] KOMGEQZKEW3838-93-53 10:09:009.0[facility] NtkmufaWPOJHYDOFG2231-21-66 10:09:00* Test Item Value Reference Range Interpretation Comments MCH (test code = MCH) 28.9 pg 27.0-31.0 [facility] GmorvpcDNZJYNYFNE5909-32-93 10:09:0033.5[facility] HermannHEMATOLOGY 2018-04-21 10:09:0014.1[facility] MaqnjtyDKTFUDSZCM4602-11-75 10:09:000.2[facility] ZyohiezJHCTULATSN8848-01-12 10:09:007.2[facility] XiiqsrrWKWNCTJUQN9241-62-75 10:09:0069.3[facility] FftwtreSJDDYXMLKO8577-87-68 10:09:0019.8[facility] NFOXZITPJF3588-90-99 10:09:000.6[facility] KttbvihLEMNAYABRT6806-18-76 10:09:000.6 [facility] UrvcvqhCSHMIUAJMA5769-87-07 10:09:005.3[facility]annHEMATOLOGY 2018-04-21 10:09:001.5[facility] SzrqshjEDEAZCSDJU3182-03-54 10:09:003.1[facility] HermannCHEM NZMHW2954-30-90 21:11:0070[facility] HermannCHEM XUQCL2757-87-62 21:11:09319Kgyakdrh HermannCHEM BUNRV1196-38-15 21:11:004.4[facility] HermannCHEM JPTQH5110-30-76 21:11:008.0[facility] HermannCHEM FROLV3276-12-06 21:11:0025 [facility] HermannCHEM NNVVI3296-05-04 21:11:0018[facility] HermannCHEM PANEL 2018-04-20 21:11:24004Rwohbydq HermannCHEM QLBUB1858-78-74 21:11:000.93[facility] HermannCHEM JKOUU1449-82-26 21:11:98733Iilaxcxy HermannCHEM VZDRH7937-23-17 21:11:0013.4[facility] NbzdwnzKTBMXWXIZS7098-09-67 21:11:0013.9[facility] ZEZPLRJGMM1821-52-18 21:11:04852Lskfwojc QdbufriWQFBOWYVPI5541-08-60 21:11:008.4 [facility] PifzjbtBGZOGDVRKF9186-93-96 21:11:0010.1[facility]annHEMATOLOGY 2018-04-20 21:11:009.7[facility] NndnewiBUENNKPXZC3237-15-28 21:11:0029.7[facility] XllvbowGWKVOWDBMU5426-83-89 21:11:003.46[facility] JbbqcwnKNJXZINNWT8501-59-55 21:11:0032.6[facility] KxgqckeJZCPRVWLDL8073-69-50 21:11:0086.0[facility] SHWSORJJGN0539-06-07 21:11:00* Test Item Value Reference Range Interpretation Comments MCH (test code = MCH) 28.0 pg 27.0-31.0 [facility] PtjocdyVTFODTZVAZ8237-53-80 21:11:00* Test Item Value Reference Range Interpretation Comments INR (test code = INR) 1.07 1 0.85-1.17 [facility] DnbdkxxSDDDKAQIJA6485-84-71 21:11:00* Test Item Value Reference Range Interpretation Comments PT (test code = PT) 13.9 s 12.0-14.7 [facility] CqgeshxMPKLQXGPZV8560-22-55 21:11:007.6[facility] HermannHEMATOLOGY 2018-04-20 21:11:000.8[facility] TetsxueLLTMYYKKNW0951-98-77 21:11:000.5[facility] SsovzmvDAUXWRJSCJ9329-06-64 21:11:001.8[facility] CpaypupHVXLSZTSGX1598-06-04 21:11:000.1[facility] YkyxevgQGJWZRBOLU9202-18-40 21:11:000.1[facility] XSPFUJSUVQ3667-35-91 21:11:0018.2[facility] YiolgzlNRYUUWAHEH1343-19-36 21:11:00 75.1[facility] ShomyduLQDUFYEXYD9151-07-34 21:11:004.8[facility] HermannHEMATOLOGY 2018-04-20 21:11:001.1[facility] HermannSPECIAL NRGHFIDDD5370-22-66 21:11:006.9 [facility] HermannSPECIAL TUTTHMXCQ5202-70-03 18:16:006.9[facility] HermannBLOOD BANK PEXPKER8379-09-96 17:55:00Negative (04/15/18 12:55 PM)[facility] NWOTZBQEMEGX2768-45-43 17:55:0014.6[facility] ZbwglhvEJQIYWHHVSNX7274-27-88 17:55:0062[facility] GbzcehjYNQWGNOZGFHJ6880-43-29 17:55:02012Vlewwbkp Don XVMYWENUXRFU1762-02-09 17:55:0024[facility] WlyjxqvAXWYWGEGKPKB9142-40-30 17:55:00 8.7[facility] RunzomyMPMPTUYYKSRF1295-24-45 17:55:0095[facility] HermannELECTROLYTES 2018-04-15 17:55:0018[facility] EghxwsuOKQNLZEQKUQL8525-68-19 17:55:72138Fdznlsbp UukegmhXRHCPGTUEEFY3626-86-33 17:55:001.03[facility] KszrrynEZCSRHFGFIPC1275-06-01 17:55:004.6[facility] WqxaenzRRKNMNKWAR1595-22-44 17:55:000.1[facility] PRSPSTHHZX8665-65-64 17:55:00* Test Item Value Reference Range Interpretation Comments PT (test code = PT) 13.2 s 12.0-14.7 [facility] TrkptqnTVSUFYMBRN5324-62-93 17:55:00* Test Item Value Reference Range Interpretation Comments PTT (test code = PTT) 28.1 s 22.9-35.8 [facility] QhqxpitPKMLMISWQP7719-33-35 17:55:00* Test Item Value Reference Range Interpretation Comments INR (test code = INR) 1.00 1 0.85-1.17 [facility] TMBUXSY6274-32-69 17:49:00Product available (04/15/18 12:49 PM)[facility] HermannCHEM HBFIC1405-16-51 20:35:0071[facility] HermannCHEM KIOZM0531-61-59 20:35:009.0[facility] HermannCHEM TDNQM5791-21-96 20:35:0028 [facility] HermannCHEM DPLEZ9959-44-17 20:35:0011.7[facility] HermannCHEM PANEL 2016-11-27 20:35:0025Mem[facility] HermannCHEM BFGYM5996-59-71 20:35:000.92[facility] HermannCHEM HDEVA6017-57-15 20:35:004.7[facility] HermannCHEM AEHGG0364-68-51 20:35:24689Vpsajfao HermannCHEM GXMSX5201-12-94 20:35:26088Xmvecein HermannCHEM KPJYD3136-51-21 20:35:06780Isxtpggp AqcepmsQRNHFHJNMV7030-54-43 20:35:0031.1 [facility] RpitqqdEYCCVTGRGW4500-40-05 20:35:0059.7[facility] HermannHEMATOLOGY 2016-11-27 20:35:000.8[facility] PpasbtxHJMTNBOZZO8279-43-83 20:35:004.5[facility] OjlutipQTKNTHGHRT0634-02-32 20:35:005.7[facility] ExuypudYGODLNJIXV7697-69-45 20:35:002.7[facility] TldmvhnJNXTRMGKZS1026-06-69 20:35:000.1[facility] PPVONOMAHL5051-68-81 20:35:000.2[facility] WgfcpgqGMLNSUBIEN0661-51-36 20:35:000.4 [facility] DgdcjtzACYGZDQJVW9216-33-24 20:35:002.4[facility] HermannHEMATOLOGY 2016-11-27 20:35:0085.4[facility] ObldazwBCSEBWPMOS2914-55-70 20:35:00* Test Item Value Reference Range Interpretation Comments MCH (test code = MCH) 28.6 pg 27.0-31.0 [facility] DgyegfvAHMPSYIUOM9615-79-69 20:35:0033.5[facility] HermannHEMATOLOGY 2016-11-27 20:35:008.4[facility] GuwpwunHSXTHCQUSV5004-44-13 20:35:30149Jrhhpecj SllpcwcLOJVSKCEWO0866-72-45 20:35:0013.5[facility] FsrfdvhYUNPYCGYIB9937-07-83 20:35:0035.3[facility] KaauvteRZYMPVLZET6163-13-53 20:35:0011.8[facility] FGQJJRWLFY7117-02-01 20:35:004.14[facility] UaortpxONJESYCSRR9276-57-89 20:35:00 7.6[facility]
[2020-06-21] MEDS ORDERED: FENTANYL CITRATE/PF 100MCG/2 ML INJ ONE (09:04)
--- NOTE | 2020-06-21 09:47 | Operative Report ---
DATE OF PROCEDURE: 06/21/2020 SURGEON: John Worley MD PREOPERATIVE DIAGNOSIS: C6-7 disk herniation and spondylosis with radiculopathy, M50.123. POSTOPERATIVE DIAGNOSIS: C6-7 disk herniation and spondylosis with radiculopathy, M50.123. PROCEDURE: 1. C6-7 anterior cervical diskectomy and microsurgical osteophyte resection and allograft fusion, 39965. 2. Preparation of MTF corticocancellous allograft, 62905. 3. C6-7 anterior cervical fusion with Synthes ZPN plate, 92915. ANESTHESIA: General. INDICATIONS: The patient is a 54-year-old woman who presents with C6-7 spondylosis and cervical radiculopathy and was taken to surgery for a one level ACDF. PROCEDURE IN DETAIL: After induction of general anesthesia, the patient was placed on the operating table in supine position. The right side of neck was prepped and draped in sterile fashion. The fluoroscopic C-arm was positioned in cross-table lateral orientation. A small transverse incision was created on the right side of neck, superimposed on the C6-7 disk space as determined by fluoroscopy. The platysma was divided in line with the incision. A subplatysmal dissection was carried out and avascular plane of dissection was developed medial to the sternocleidomastoid muscle and was followed medial to the carotid sheath to the anterior border of cervical spine. The deep cervical fascia was opened. The esophagus was retracted to the left. The attachments of longus colli muscles to the anterolateral aspects of vertebral bodies of C6 and C7 were divided. The anterior longitudinal ligament was resected. [place] posts were inserted into C6 and C7. The [place] distractor was used to distract the disk space. Anterior anulus of the disk was incised with a #11 blade. The contents of the disk were thoroughly evacuated with curettes and pituitary instruments. The posterior osteophytes were meticulously drilled with a 2 mm cutting bur on a high-speed drill until they completely removed. The posterior annulus of the disk, herniated disk material, and the posterior longitudinal ligament were resected layer by layer until the dura was fully exposed and decompressed. The medial aspects of the uncinate processes were resected bilaterally to further expose and decompress the origins of the corresponding nerve roots. After satisfactory decompression was achieved, the endplates were prepared for fusion. The disk space was sized and found to be 9 mm in height. A piece of MTF corticocancellous allograft measuring 9 mm in thickness was selected and prepared in saline, and loaded onto a corresponding Synthes ZPN plate. The construct was inserted into the C6-7 disk space under distraction and fluoroscopic guidance and tamped in place until its anterior margin was flushed with anterior margin of vertebral bodies. The plate was then screwed to the endplates of C6 and C7 with two pairs of 14 mm screws. All screws were locked and excellent construct was obtained. The wound was copiously irrigated with bacitracin solution. Meticulous hemostasis was secured. Retractor was removed. The platysma was closed with 3-0 Vicryl sutures. The skin was closed with 4-0 Monocryl sutures in subcuticular fashion. Steri-Strips and dressing were applied. The patient was awakened, extubated, and taken to postanesthesia care in stable condition. No intraoperative complications were encountered. Estimated blood loss was 10 mL. John Worley MD PP/MICHAEL /[id number]
--- NOTE | 2020-06-21 10:30 | NUR ---
pt alert resp even and unlabored at this time no distress noted, pt has no c/o pain when asked, pt able to make needs known, pt wearing cervical collar, at this time, pt has family member at bedside, pt oriented to room and call light, bed in lowest position, bed rails up x 2, will cont to monitor.
[2020-06-21] MEDS ORDERED: INFLUENZA VIRUS VAC SPLIT INJ 0.5 ML SYR IM SCH (12:00)
[2020-06-21] MEDS: METFORMIN HCL 500 MG TAB PO SCH ×2 (12:00→17:28)
[2020-06-21] MEDS: HYDROMORPHONE 2MG/ML 2 MG/ML ML IV PRN ×3 (12:03→21:55)
[2020-06-21] MEDS: ONDANSETRON HCL INJ 2MG/ML 2ML 2 MG/ML VIAL IV PRN ×3 (12:06→21:55)
[2020-06-21] MEDS ORDERED: NEOSTIGMINE 1 MG/ML 10ML VIAL ONE (13:24)
[2020-06-21] MEDS ORDERED: DEXAMETHASONE SOD PHOS INJ 4 MG/ML VIAL ONE (13:24)
[2020-06-21] MEDS ORDERED: LIDOCAINE HCL 2% LOCAL INJ 5 ML SDV VIAL INJ ONE (13:24)
[2020-06-21] MEDS ORDERED: PROPOFOL IV EMULSION 10 MG/ML 20 ML VIAL ONE (13:24)
[2020-06-21] MEDS ORDERED: GLYCOPYRROLATE INJ 0.2 MG/ML VIAL ONE (13:24)
[2020-06-21] MEDS ORDERED: LIDOCAINE HCL 2% JELLY 5 ML TUBE ONE (13:24)
[2020-06-21] MEDS ORDERED: SEVOFLURANE INHAL SOLN 250 ML PEN BTL ONE (13:24)
[2020-06-21] MEDS ORDERED: ROCURONIUM BROMIDE 10 MG/ML 5ML VIAL IV ONE (13:24)
[2020-06-21] MEDS ORDERED: PNEUMOCOCCAL VACCINE POLYVALENT 23 MCG/0.5 ML VIAL IM SCH (14:00)
[2020-06-21] MEDS: CEFAZOLIN SOD 1 GM/NS 50ML 50 ML IV SCH ×2 (15:20→21:00)
--- OUTSIDE RECORDS SUMMARY | 2020-06-21 16:05 | XMS REPORT ---
Author Author [facility] Organization [facility] Address Unknown Phone Unavailable Encounter 04/25/20 [facility], [facility] [address] [id number] Problem List Condition Effective Dates Status Health Status Informan t Allergic Active Rhinitis(Confirmed) Anemia(Confirmed) Active Anxiety(Confirmed) Active Anxiety Active disorder(Confirmed) Benzodiazepine Active dependence(Confirmed ) Chronic, continuous Active use of opioids(Confirmed) Dyslipidemia(Confirm Active ed) HHD - Hypertensive Active heart disease(Confirmed) Hyperlipidemia(Confi Active rmed) Hypertriglyceridemia Active (Confirmed) Knee Active osteoarthritis(Confi rmed) Chronic Low Back Active Pain(Confirmed) ANTHONY 5, Active Uncomplicated, Uncontrolled(Confirm ed) Obesity(Probable Active Diagnosis) Osteoarthritis(Confi Active rmed)1 Current Active smoker(Confirmed) Sweats, Active menopausal(Confirmed ) Type 2 diabetes Active mellitus(Confirmed)2 Vitamin D Active deficiency(Confirmed ) 1generalized 2NEUROPATHY Allergies, Adverse Reactions, Alerts Substance Reaction Severity Status morphine Active Medications atorvastatin 20 mg oral tablet = 1 tab(s) ( 20 mg ), Oral, daily, # 90 tab(s), 3 Refill(s), Pharmacy: [facility] #[id number], 1 tab(s) Oral daily, 67, in, 07/15/19 14:15:00 MED[facility] LIAISON, Height Measure d, 180, lb, 06/15/19 12:50:00 MEDICAL LIAISON, Weight Measured Start Date: 12/23/19 Status: Ordered benzonatate 100 mg oral capsule = 2 cap(s) ( 200 mg ), PO, TID, Instructions: as needed for cough, # 60 cap(s), 0 Refill(s), Type: Maintenance, Pharmacy: [id number], 2 cap(s) O ral tid,x10 day(s),Instr:as needed for cough Start Date: 09/22/18 Stop Date: 03/02/19 Status: Discontinued biotin 1000 mcg oral tablet See Instructions, Instructions: 10 tab(s) po, 0 Refill(s), Type: Maintenance Start Date: 11/04/13 Status: Ordered Bydureon Pen 2 mg subcutaneous injection, extended release ( 2 mg ), Subcutaneous, 1x/wK, # 4 EA, 3 Refill(s), Type: Soft Stop, Pharmacy: [facility] #[id number], 2 mg Subcutaneous 1x/wK, 67, in, 07/15/19 14:15:00 MEDICAL LIAISON, He ight Measured, 180, lb, 06/15/19 12:50:00 MEDICAL LIAISON, Weight Measured Start Date: 12/23/19 Status: Ordered Bystolic 5 mg oral tablet = 1 tab(s) ( 5 mg ), Oral, daily, # 30 tab(s), 0 Refill(s), Type: Maintenance, f axed to pharmacy (Rx) Start Date: 06/15/19 Stop Date: 07/07/19 Status: Discontinued cefdinir 300 mg oral capsule = 1 cap(s) ( 300 mg ), PO, q12hr, # 20 cap(s), 0 Refill(s), Type: Maintenance, P harmacy: [id number], 1 cap(s) Oral q12 hr,x10 day(s) Start Date: 09/22/18 Stop Date: 03/02/19 Status: Discontinued Claritin 10 mg oral tablet 1 tab(s) ( 10 mg ), PO, Daily, # 30 tab(s), 0 Refill(s), Type: Maintenance Start Date: 09/17/12 Stop Date: 08/25/18 Status: Discontinued colestipol 1 g oral tablet = 1 tab(s) ( 1 g ), Oral, daily, # 30 tab(s), 0 Refill(s), Type: Maintenance, pa tient has supply at home (Rx) Start Date: 08/25/18 Stop Date: 03/02/19 Status: Discontinued cranberry oral capsule 2 tab(s), Oral, daily, # 60 tab(s), 0 Refill(s), Type: Maintenance, patient has supply at home (Rx) Start Date: 08/25/18 Stop Date: 06/15/19 Status: Discontinued gabapentin 300 mg oral capsule = 1 cap(s) ( 300 mg ), Oral, hs, 0 Refill(s), Type: Maintenance Start Date: 03/14/19 Stop Date: 06/15/19 Status: Discontinued gabapentin 300 mg oral capsule = 1 cap(s) ( 300 mg ), Oral, bid, # 180 cap(s), 3 Refill(s), Type: Maintenance, Pharmacy: [facility] #[id number], 1 cap(s) Oral bid, 67, in, 07/15/19 14:15:00 CS T, Height Measured, 180, lb, 06/15/19 12:50:00 MEDICAL LIAISON, Weight Measured Start Date: 12/23/19 Status: Ordered HumaLOG Mix 75/25 subcutaneous suspension See Instructions, Instructions: INJECT 30 UNITS UNDER THE SKIN EVERY DAY, # 10 m L, 10 Refill(s), Type: Soft Stop, Pharmacy: [facility] #[id number], INJECT 30 UNITS UNDER THE SKIN EVERY DAY Start Date: 06/07/19 Stop Date: 12/23/19 Status: Discontinued HumaLOG Mix 75/25 subcutaneous suspension See Instructions, Instructions: INJECT 30 UNITS UNDER THE SKIN EVERY DAY, # 10 m L, 3 Refill(s), Type: Soft Stop, Pharmacy: [id number] Start Date: 05/03/18 Stop Date: 08/25/18 Status: Discontinued Humulin R 100 units/mL injectable solution See Instructions, Instructions: inject 25 units QD, # 10 mL, 3 Refill(s), Type: Soft Stop, Pharmacy: [facility] [id number], inject 25 units QD Start Date: 10/24/14 Stop Date: 08/25/18 Status: Discontinued Humulin R 100 units/mL injectable solution ( 15 unit(s) ), daily, 0 Refill(s), Type: Soft Stop Start Date: 04/22/12 Stop Date: 08/25/18 Status: Discontinued ibuprofen 800 mg oral tablet 0 Refill(s), Type: Maintenance Start Date: 07/29/13 Stop Date: 08/25/18 Status: Discontinued ipratropium 42 mcg/inh (0.06%) nasal spray 2 spray(s), Nasal, qid, # 3 EA, 3 Refill(s), Type: Soft Stop, Pharmacy: [facility] #[id number], 2 spray(s) Nasal qid, 67, in, 07/15/19 14:15:00 MEDICAL LIAISON, Height Measu red, 180, lb, 06/15/19 12:50:00 MEDICAL LIAISON, Weight Measured Start Date: 12/23/19 Status: Ordered lisinopril 10 mg oral tablet See Instructions, Instructions: TAKE 1 TABLET BY MOUTH DAILY, # 90 tab(s), 3 Ref ill(s), Type: Soft Stop, Pharm[facility]: [id number] Start Date: 08/06/16 Stop Date: 04/23/17 Status: Discontinued lisinopril 10 mg oral tablet 1 tab(s) ( 10 mg ), PO, Daily, # 90 tab(s), 3 Refill(s), Type: Maintenance, Phar gray: [facility] [id number], 1 tab(s) po daily Start Date: 04/23/17 Stop Date: 08/25/18 Status: Discontinued lisinopril 2.5 mg oral tablet = 1 tab(s) ( 2.5 mg ), PO, Daily, # 90 tab(s), 0 Refill(s), Type: Maintenance, p atient has supply at home (Rx) Start Date: 08/25/18 Stop Date: 03/02/19 Status: Discontinued LORazepam 0.5 mg oral tablet = 1 tab(s) ( 0.5 mg ), Oral, hs, # 30 tab(s), 0 Refill(s), Type: Maintenance, pa tient has supply at home (Rx) Start Date: 08/25/18 Stop Date: 03/02/19 Status: Discontinued LORazepam 0.5 mg oral tablet 1 tab(s) ( 0.5 mg ), PO, bid, PRN: for anxiety, # 60 tab(s), 5 Refill(s), Type: Maintenance Start Date: 04/24/17 Stop Date: 08/25/18 Status: Discontinued lorazepam 1 mg oral tablet 1 tab(s) ( 1 mg ), PO, TID, PRN: for anxiety, 0 Refill(s), Type: Soft Stop Start Date: 04/22/12 Stop Date: 08/25/18 Status: Discontinued lovastatin 40 mg oral tablet See Instructions, Instructions: TAKE 1 TABLET BY MOUTH EVERY DAY, # 90 tab(s), 3 Refill(s), Type: Soft Stop, Pharmacy: [facility] [id number], TAKE 1 TABLET BY MOUTH EVERY DAY Start Date: 01/29/16 Stop Date: 08/25/18 Status: Discontinued metFORMIN 1000 mg oral tablet = 1 tab(s), Oral, bid, # 180 tab(s), 3 Refill(s), Type: Soft Stop, [id number], 1 tab(s) Oral bid, 67, in, 07/15/19 14:15:00 MEDICAL LIAISON, Height Toyin sured, 180, lb, 06/15/19 12:50:00 MEDICAL LIAISON, Weight Measured Start Date: 12/23/19 Status: Ordered metoprolol tartrate 25 mg oral tablet = 1 tab(s) ( 25 mg ), Oral, daily, # 90 tab(s), 3 Refill(s), Type: Maintenance, Pharmacy: [facility] #[id number], 1 tab(s) Oral daily, 67, in, 07/15/19 14:15:00 MEDICAL LIAISON, Height Measured, 180, lb, 06/15/19 12:50:00 MEDICAL LIAISON, Weight Measured Start Date: 12/23/19 Status: Ordered metroNIDAZOLE 500 mg oral tablet 1 tab(s) ( 500 mg ), PO, q8hr, # 21 tab(s), 0 Refill(s), Type: Maintenance, Abdullahi [facility]: [facility] [id number], 1 tab(s) po q8 hrs,x7 day(s) Start Date: 07/10/17 Stop Date: 08/25/18 Status: Discontinued Multiple Vitamins oral tablet 1 tab(s), PO, Daily, # 90 tab(s), 0 Refill(s), Type: Soft Stop Start Date: 04/22/12 Stop Date: 06/15/19 Status: Discontinued [place] 7.5 mg-325 mg oral tablet 1 tab(s), Oral, tid, Instructions: as needed for pain, 0 Refill(s), Type: Mainte nance Start Date: 09/22/18 Stop Date: 12/23/19 Status: Discontinued NOVOFINE PLS MIS [id number] NOVOFINE PLS MIS [id number], See Instructions, Instructions: USE WITH NOVOLOG EVERY DAY, # 100 EA, 2 Refill(s), Type: Maintenance, Pharmacy: [facility], USE WITH NOVOLOG EVERY DAY, 67, in, 12/23/19 14:56:00 CDT, Height Measured, 190, lb, 05... Start Date: 02/02/20 Status: Ordered NOVOFINE PLS MIS [id number] NOVOFINE PLS MIS [id number], See Instructions, Instructions: USE WITH NOVOLOG EVERY DAY, # 100 EA, 10 Refill(s), Type: Maintenance, Pharmacy: [id number], USE WITH NOVOLOG EVERY DAY, , in, 07/15/19 14:15:00 MEDICAL LIAISON, Height Measured, 180, lb, 1... Start Date: 11/02/19 Status: Ordered NovoLOG Mix 70/30 FlexPen subcutaneous suspension 30 units, Subcutaneous, daily, # 15 mL, 3 Refill(s), Type: Soft Stop, Pharmacy: [facility] #[id number], 30 units Subcutaneous daily, , in, 07/15/19 14:15:00 CS T, Height Measured, 180, lb, 06/15/19 12:50:00 MEDICAL LIAISON, Weight Measured Start Date: 12/23/19 Status: Ordered omeprazole 40 mg oral delayed release capsule See Instructions, Instructions: TAKE ONE (1) CAPSULE(S) BY MOUTH EVERY MORNING., # 30 EA, 9 Refill(s), Pharmacy: [facility] [id number], TAKE ONE (1) CAPSULE(S) BY MOUTH EVERY MORNING., 67, in, 04/23/20 12:34:00 CDT, Height Measured, 192, lb, 04/23/20 12: 34:00 CDT,... Start Date: 04/25/20 Status: Ordered ONE TOUCH ULTRA BLUE TESTST(NEW)100 See Instructions, Instructions: TEST THREE TIMES DAILY, # 100 unknown unit, 2 Re fill(s), Type: Soft Stop, Pharmacy: [facility] #[id number], TEST THREE TIME S DAILY Start Date: 06/27/19 Status: Ordered Pataday 0.2% ophthalmic solution 1 drop(s), Eye-Both, daily, # 1 bottle(s), 1 Refill(s), Type: Maintenance, Pharm acy: [id number], 1 drop(s) Eye-Both daily Start Date: 09/22/18 Stop Date: 03/02/19 Status: Discontinued sucralfate 1 g oral tablet = 1 tab(s) ( 1 g ), PO, QID, Instructions: as needed, # 56 tab(s), 0 Refill(s), Type: Maintenance, patient has supply at home (Rx) Start Date: 08/25/18 Stop Date: 03/02/19 Status: Discontinued tiZANidine 2 mg oral tablet = 2 tab(s) ( 4 mg ), Oral, bid, # 120 tab(s), 0 Refill(s), Type: Maintenance, ca lled to pharmacy (Rx) Start Date: 04/23/20 Status: Ordered Vitamin D3 2000 intl units oral capsule = 1 cap(s) ( 2,000 International Unit ), Oral, daily, # 90 cap(s), 3 Refill(s), Type: Maintenance, called to pharmacy (Rx) Start Date: 04/23/20 Status: Ordered Reason for Referral See Assessment and Plan Assessment and Plan No data available for this section Immunizations No data available for this section Procedures Procedure Date Related Diagnosis Body Site Status Knee replacement1 04/2018 Completed Laparoscopic cholecystectomy 2010 Completed Arthroscopy of knee2 Completed Caesarean section3 Completed 1right 2left 3twice Results No data available for this section Social History Social History Type Response Alcohol Never Substance Abuse Never Smoking Status Never (less than 100 in lif etime) entered on: 04/23/20 Sex Female Vital Signs No data available for this section Functional Status No data available for this section Mental Status No data available for this section Medical Equipment No data available for this section Goals No data available for this section Health Concerns No data available for this section
[2020-06-21] MEDS: LACTATED RINGER'S 1,000 ML IV SCH (17:28)
--- NOTE | 2020-06-21 19:28 | NUR ---
WALKING ROUNDS COMPLETE, REPORT GIVEN TO ONCOMING NURSE.
[2020-06-21] MEDS: OXYCODONE/ACETAMINOPHEN 5-325 1 EACH TABLET PO PRN (20:05)
[2020-06-21] MEDS ORDERED: ATORVASTATIN 20 MG TAB PO SCH (21:00)
[2020-06-21] MEDS ORDERED: ZOLPIDEM TARTRATE 5 MG TAB PO PRN (21:00)
[2020-06-21] MEDS ORDERED: GABAPENTIN 300 MG CAP PO SCH (21:00)
[2020-06-21] MEDS ORDERED: TIZANIDINE HCL 4 MG TAB PO SCH (21:00)
[2020-06-22 00:12] VITALS: BP 117/66
[2020-06-22] MEDS: LACTATED RINGER'S 1,000 ML IV SCH (01:25)
[2020-06-22] MEDS: ONDANSETRON HCL INJ 2MG/ML 2ML 2 MG/ML VIAL IV PRN ×2 (02:10→06:15)
[2020-06-22] MEDS: HYDROMORPHONE 2MG/ML 2 MG/ML ML IV PRN ×2 (02:10→06:15)
[2020-06-22 04:28] VITALS: BP 105/71
[2020-06-22] MEDS: CEFAZOLIN SOD 1 GM/NS 50ML 50 ML IV SCH (06:15)
[2020-06-22 08:45] VITALS: BP 127/82
[2020-06-22 08:56] VITALS: BP 127/82
--- NOTE | 2020-06-22 09:05 | NUR ---
Pt. expressed no spiritual or emotional concerns at this time. [employer] provided hospitality and information on how to reach drafter electrical, if needed. No need to follow. SRIRAM ALEX [employer] Spiritual Care Department O: [phone]
[2020-06-22] MEDS: METFORMIN HCL 500 MG TAB PO SCH (09:22)
[2020-06-22] MEDS: PANTOPRAZOLE SOD 40 MG TABEC PO SCH (09:22)
[2020-06-22] MEDS: METOPROLOL TARTRATE 25 MG TAB PO SCH (09:23)
--- NOTE | 2020-06-22 09:27 | Diagnostic Imaging Report ---
X-ray cervical spine 2 views History: Post C-spine fusion Findings: Status post C6-C7 fusion in near-anatomic alignment with orthopedic hardware visualized and showing no lucency around the hardware. Slight straightening of the C-spine lordosis. Degenerative changes especially in the facet joints at multiple other levels. Impression: Status post C6-C7 anterior fusion. Signed by: Gal Choudhury MD on 06/22/2020 9:24 AM
[2020-06-22] MEDS ORDERED: NORCO 7.5-3251 EACH PO (11:05)
[2020-06-22] MEDS: OXYCODONE/ACETAMINOPHEN 5-325 1 EACH TABLET PO PRN (11:40)
[2020-06-22] MEDS ORDERED: PNEUMOCOCCAL VACCINE POLYVALENT 23 MCG/0.5 ML VIAL IM SCH (12:00)
[2020-06-22] MEDS ORDERED: INFLUENZA VIRUS VAC SPLIT INJ 0.5 ML SYR IM SCH (12:00)
--- NOTE | 2020-06-22 12:40 | NUR ---
PATIENT DISCHARGED HOME. PATIENT OFF THE UNIT @ 1135 VIA WHEELCHAIR ACCOMPANIED BY RN TO THE LOBBY. PATIENT IN STABLE CONDITION, NO S/S OF DISTRESS NOTED. NO PAIN VOICED. IV REMOVED WITH TIP INTACT. C-COLLAR IN APPLIED INCISION SITE C/D/I. ALL PERSONAL ITEMS TAKEN WITH THE PATIENT. DISCHARGE TEACHING AND INSTRUCTION GIVEN TO THE PATIENT. PATIENT VERBALIZED UNDERSTANDING. DISCHARGE PAPERWORK AND PRESCRIPTION GIVEN TO THE PATIENT.
== END 2020-06-22 12:35 | disposition home or self-care (01) ==
LOC: OR 05:29 → PACU V 08:47 → MED/SURG 09:50
PROVIDERS: ADMIT Neurological Surgery; ATTEND Neurological Surgery
DX: M50.123 Cervical disc disorder at C6-C7 level with radiculopathy (principal); Z20.828 Contact with and (suspected) exposure to other viral communicable diseases; Z01.818 Encounter for other preprocedural examination; E66.9 Obesity, unspecified; Z68.30 Body mass index [BMI] 30.0-30.9, adult; E11.9 Type 2 diabetes mellitus without complications; I10 Essential (primary) hypertension; E78.5 Hyperlipidemia, unspecified
CPT/HCPCS: 20931; 22551; 22845; 36415 ×2; 71046; 72040; 77003; 80048; 82948; 85025; 85610; 85730; 86850; 86900; 88304; 90732; 93005; C1713 ×2; C9359; G0378 ×2; J0131; J0690 ×2; J1170 ×2; J2405 ×2; J3010; J3370; J7121; S0164; U0002; G0009; J1100; J2001; J2710

== ENCOUNTER → 2020-07-17 | Outpatient (CLI) | payer BC | LOC: RAD 09:48 | PROVIDERS: ATTEND Neurological Surgery | DX: M50.20 Other cervical disc displacement, unspecified cervical region (principal); M43.22 Fusion of spine, cervical region | CPT/HCPCS: 72050 ==

== ENCOUNTER 2021-05-05 20:12 | Emergency (ER) | payer BC ==
[~2021-05-05] VITALS: Ht 170.2 cm; Wt 88.5 kg
[2021-05-05] MEDS ORDERED: SODIUM CHLORIDE 0.9% 1000ML 1,000 ML IV STA (20:17)
[2021-05-05 20:31] LABS: BASOPHILS # (AUTO) 0.1 (0.0-0.1); BASOPHILS % 0.8 % (0.0-1.0); EOSINOPHILS # (AUTO) 0.3 (0.0-0.4); EOSINOPHILS % 2.5 % (0.0-6.0); HEMATOCRIT 38.3 % (34.2-44.1); LYMPHOCYTES # (AUTO) 3.6 (1.0-3.2); LYMPHOCYTES % 33.7 % (18.0-39.1); MEAN CORPUSCULAR HEMOGLOBIN 27.1 pg (28-32); MEAN CORPUSCULAR HGB CONC 31.3 g/dL (31-35); MEAN CORPUSCULAR VOLUME 86.5 fL (81-99); MONOCYTES # (AUTO) 0.7 (0.2-0.8); MONOCYTES % 6.6 % (4.4-11.3); NEUTROPHILS # (AUTO) 5.9 (2.1-6.9); NEUTROPHILS % 55.9 % (38.7-80.0); PLATELET COUNT 279 x10e3/uL (140-360); RED BLOOD COUNT 4.43 x10e6/uL (3.6-5.1); RED CELL DISTRIBUTION WIDTH 14.3 % (11.7-14.4)
[2021-05-05] MEDS: CEFTRIAXONE 1 GM in SODIUM CHLORIDE 0.9% 50ML 50 ML IV SCH ×2 (20:35→21:03)
[2021-05-05] MEDS ORDERED: ONDANSETRON HCL INJ 2MG/ML 2ML 2 MG/ML VIAL IV STA (20:38)
[2021-05-05 20:45] LABS: CLARITY,URINE CLEAR (CLEAR); COLOR,URINE YELLOW (YELLOW); KETONES,URINE NEGATIVE (NEGATIVE); LEUKOCYTE ESTERASE ,URINE NEGATIVE (NEGATIVE); NITRITE,URINE NEGATIVE (NEGATIVE); PROTEIN,URINE DIPSTICK 1+ (NEGATIVE); URINE UROBILINOGEN 0.2 mg/dL (0.2 - 1)
[2021-05-05] MEDS ORDERED: ONDANSETRON HCL INJ 2MG/ML 2ML 2 MG/ML VIAL ONE (20:48)
[2021-05-05 20:52] LABS: ALANINE AMINOTRANSFERASE 33 IU/L (0-55); ALBUMIN/GLOBULIN RATIO 1.2 (0.8-2.0); ALKALINE PHOSPHATASE 68 IU/L (40-150); ANION GAP 17.5 mmol/L (8-16); BLOOD UREA NITROGEN 14 mg/dL (7-26); BUN/CREATININE RATIO 14 (6-25); CALCIUM 8.8 mg/dL (8.4-10.2); CARBON DIOXIDE 24 mmol/L (22-29); CHLORIDE 99 mmol/L (98-107); CREATINE KINASE 37 IU/L (29-168); EST GLOMERULAR FILTRATION RATE 57 ML/MIN (60-); GLUCOSE 135 mg/dL (74-118); POTASSIUM 3.5 mmol/L (3.5-5.1); SODIUM 137 mmol/L (136-145)
[2021-05-05 20:59] LABS: BACTERIA,URINE RARE /HPF; EPITHELIAL CELLS,URINE RARE /LPF; WBC,URINE (MAN) 0-5 /HPF (0-5)
[2021-05-05 21:25] LABS: AMPHETAMINES SCREEN,URINE NEGATIVE (NEGATIVE); BENZODIAZEPINES SCREEN,URINE POSITIVE (NEGATIVE); PHENCYCLIDINE SCREEN,URINE NEGATIVE (NEGATIVE)
[2021-05-05] MEDS ORDERED: PYRIDIUM100 MG PO (23:17)
[2021-05-05] MEDS ORDERED: ACETAMINOPHEN 325 MG TAB PO ONE (23:30)
[2021-05-05] MEDS ORDERED: ACETAMINOPHEN 325 MG TAB ONE (23:34)
[2021-05-06 00:26] VITALS: BP 117/85
== END 2021-05-06 00:27 | disposition home or self-care (01) ==
LOC: ER 20:17
DX: R30.0 Dysuria (principal); R53.1 Weakness; R53.81 Other malaise; E11.65 Type 2 diabetes mellitus with hyperglycemia; I10 Essential (primary) hypertension
CPT/HCPCS: 36415; 71045; 80053; 80307; 81001; 82550; 82553; 83605; 84484; 85025; 87040; 93005; 99284; J0696; J2405; J7030

== ENCOUNTER 2022-09-03 14:35 | Emergency (ER) | payer BC ==
[~2022-09-03] VITALS: Ht 170.2 cm; Wt 88.5 kg
[~2022-09-03 14:35] MED LIST changes: +PYRIDIUM100 MG PO
[2022-09-03] MEDS ORDERED: KETOROLAC TROMETHAMINE 30 MG/ML VIAL IV STA (14:52)
[2022-09-03] MEDS ORDERED: SODIUM CHLORIDE 0.9% 1000ML 1,000 ML IV STA (14:52)
[2022-09-03 15:02] LABS: BASOPHILS % 0.6 % (0.0-1.0); EOSINOPHILS # (AUTO) 0.1 (0.0-0.4); EOSINOPHILS % 1.7 % (0.0-6.0); HEMOGLOBIN 13.1 g/dL (12.0-16.0); LYMPHOCYTES # (AUTO) 2.8 (1.0-3.2); LYMPHOCYTES % 40.6 % (18.0-39.1); MEAN CORPUSCULAR HEMOGLOBIN 27.9 pg (28-32); MEAN CORPUSCULAR HGB CONC 30.5 g/dL (31-35); MEAN CORPUSCULAR VOLUME 91.7 fL (81-99); MONOCYTES # (AUTO) 0.4 (0.2-0.8); MONOCYTES % 5.1 % (4.4-11.3); NEUTROPHILS # (AUTO) 3.6 (2.1-6.9); NEUTROPHILS % 51.9 % (38.7-80.0); PLATELET COUNT 271 x10e3/uL (140-360); RED BLOOD COUNT 4.69 x10e6/uL (3.6-5.1); RED CELL DISTRIBUTION WIDTH 13.2 % (11.7-14.4)
[2022-09-03 15:19] LABS: ALBUMIN 4.1 g/dL (3.5-5.0); ANION GAP 17.2 mmol/L (8-16); CALCIUM 9.2 mg/dL (8.4-10.2); CREATININE, SERUM 1.19 mg/dL (0.57-1.11); POTASSIUM 4.2 mmol/L (3.5-5.1)
[2022-09-03] MEDS ORDERED: BENTYL10 MG/1 ML IV (15:55)
[2022-09-03] MEDS ORDERED: ONDANSETRON ODT4 MG PO (15:55)
[2022-09-03] MEDS ORDERED: PROMETHAZINE HC25 M1 PO (16:34)
[2022-09-03] MEDS ORDERED: DICYCLOMINE HCL20 MG PO (16:34)
[2022-09-03 16:51] VITALS: BP 124/75
== END 2022-09-03 16:47 | disposition home or self-care (01) ==
LOC: ER 15:39
DX: U07.1 COVID-19 (principal); R19.7 Diarrhea, unspecified; I10 Essential (primary) hypertension; E11.9 Type 2 diabetes mellitus without complications
CPT/HCPCS: 36415; 80053; 85025; 99283; J1885; J7030